=== PATIENT | female | born 1950 | race Caucasian/White ===

== ENCOUNTER → 2017-11-29 13:30 | Outpatient (CLI) | payer MEDICARE, OTHER, SELFPAY ==
--- NOTE | 2017-11-29 | DI.RAD.S_ITS ---
PROCEDURE: FL UPPER GI W AIR INDICATIONS: REFLUX DIFFICULTY SWALLOWING COMPARISON: [facility], , UPPER GI AIR CONTRAST WITH KUB, 01/19/2016, 9:27. FINDINGS: KUB: Preprocedural oil and gas superintendent film demonstrates a normal bowel gas pattern. No suspicious abdominal calcifications. Visualized solid organ contours appear normal. Bony structures appear unremarkable. Esophagus: Esophageal mucosa is normal on air-contrast views, and there is interval appearance of a small apparent traction diverticulum at the junction of the upper and middle thirds of the esophagus, previously also identified 01/19/16. On single-contrast views, there is normal esophageal peristalsis. No strictures, extrinsic mass effects, or diverticula. There is a small hiatal hernia with minimal spontaneous and elicited gastroesophageal reflux. Stomach: The stomach is normally distensible, with normal rugal fold thickness. No mucosal masses or ulcers. Pylorus and duodenal bulb appear normal in morphology. Duodenal folds are normal in thickness as well. IMPRESSION: Small sliding hiatal hernia is present with episodic mild gastroesophageal reflux associated. At times there were visualized tertiary contractions within the distal two thirds of the esophagus. A stable appearing small traction diverticulum is present at the junction of the upper and middle thirds of the esophagus, without appreciable ion exchange operator time from January 2016. No mass or stricture is found. The stomach and visualized duodenum appear normal. Dictated by: Neeraj Tucker M.D. on 11/29/2017 at 15:05 Approved by: Neeraj Tucker M.D. on 11/29/2017 at 15:07
== END ==
PROVIDERS: PCP Family Medicine; Visit Provider Family Medicine
DX: K21.9 Gastro-esophageal reflux disease without esophagitis (principal); R13.10 Dysphagia, unspecified; K44.9 Diaphragmatic hernia without obstruction or gangrene; K22.5 Diverticulum of esophagus, acquired
CPT/HCPCS: 74247

== ENCOUNTER → 2017-12-29 13:50 | Outpatient (CLI) | payer MEDICARE, OTHER, SELFPAY ==
--- NOTE | 2017-12-29 | DI.CT.S_ITS ---
PROCEDURE: CT ABDOMEN PELVIS WO/W CON INDICATIONS: KIDNEY STONES - LEFT SIDE TECHNIQUE: Optional 5 mm thick noncontrast images acquired from the diaphragm to the symphysis pubis. After the administration of intravenous contrast, 5 mm thick images acquired from the diaphragm to the symphysis pubis after a 10-minute delay. 2 mm thick coronal and sagittal reformats were then performed of the kidneys and ureters. For radiation dose reduction, the following was used: automated exposure control, adjustment of mA and/or kV according to patient size. COMPARISON: None. FINDINGS: Image quality: Excellent. Lung bases: Lung bases are clear. Heart size is normal. Bilateral breast implants showing no evidence of implant rupture. Urinary system: Both kidneys are normal in size, without hydronephrosis or nephrolithiasis on pre-contrast images. There are several left-sided peripelvic cysts, and no sign of associated urinary tract obstruction. No perinephric fat stranding. There is normal bilateral renal enhancement. Renal calyces appear normal in morphology when filled with contrast. Opacified portions of both ureters demonstrate normal caliber. Bladder wall thickness is normal. No calcified bladder stones. Other solid organs: Liver is normal in size and enhancement. The liver contains several scattered small simple hepatic cysts and no biliary distention is seen. Gallbladder appears normal. Biliary system is non dilated. Pancreas enhances normally. Spleen is normal in size and enhancement. No adrenal nodules. Peritoneum and bowel: Bowel loops demonstrate normal wall thickness and caliber. No free fluid or air. Nodes and vessels: No retroperitoneal or mesenteric adenopathy by size criteria. Aorta and inferior vena cava are normal in size. Abdominal wall: No ventral hernias. Pelvis: No pathologic free pelvic fluid. No inguinal hernias or adenopathy. Bones: No suspicious bony lesions. No vertebral body compression fractures. IMPRESSION: No acute disease is found. Source of current left-sided flank pain is not identified. There is no hydronephrosis or nephrolithiasis, but scattered left-sided peripelvic cysts are incidentally noted. No right-sided peripelvic cysts are seen. Incidental mode is made of several scattered small hepatic cysts, requiring no followup. No biliary distention is present. Dictated by: Neeraj Tucker M.D. on 12/29/2017 at 16:23 Approved by: Neeraj Tucker M.D. on 12/29/2017 at 16:26
== END ==
PROVIDERS: PCP Family Medicine; Visit Provider Family Medicine
DX: N20.0 Calculus of kidney (principal); K76.89 Other specified diseases of liver; R10.9 Unspecified abdominal pain; N94.89 Other specified conditions associated with female genital organs and menstrual cycle
CPT/HCPCS: 74178; Q9967

== ENCOUNTER → 2018-01-20 12:34 | Outpatient (CLI) | payer MEDICARE, OTHER, SELFPAY ==
--- NOTE | 2018-01-20 | DI.RAD.S_ITS ---
PROCEDURE: XR CHEST 2V INDICATIONS: GASTROESOPHAGEAL REFLUX DISEASE WITH ESOPHAGITIS TECHNIQUE: 2 views of the chest were acquired. COMPARISON: None. FINDINGS: Surgical changes and devices: None. Lungs and pleura: No pleural effusions or pneumothorax. Lungs are clear. Mediastinum: Mediastinal contours are normal. Heart size is mildly prominent. Bones and chest wall: No suspicious bony abnormalities. Soft tissues appear unremarkable. IMPRESSION: No acute pulmonary process. Dictated by: Stephanie Trevizo M.D. on 01/20/2018 at 14:12 Approved by: Stephanie Trevizo M.D. on 01/20/2018 at 14:13
== END ==
PROVIDERS: PCP Family Medicine; Visit Provider Internal Medicine Cardiovascular Disease
DX: K21.0 Gastro-esophageal reflux disease with esophagitis (principal); I71.4 Abdominal aortic aneurysm, without rupture; R07.89 Other chest pain; I44.4 Left anterior fascicular block
CPT/HCPCS: 71046

== ENCOUNTER → 2018-01-24 13:09 | Outpatient (CLI) | payer MEDICARE, OTHER, SELFPAY ==
[2018-01-24 13:59] LABS: Add Manual Diff / Slide Review NO; Basophils Percent Auto 0.8 % (0-2); Eosinophils Percent Auto 1.1 % (2-4); Hematocrit 43.6 % (36-46); Hemoglobin 14.7 g/dL (12.0-16.0); Lymphocytes Percent Auto 29.6 % (25-40); Mean Corpuscular HGB Conc 33.6 % (30-36); Mean Corpuscular Hemoglobin 33.1 PG (26-34); Mean Corpuscular Volume 98.3 fL (80-100); Monocytes Percent Auto 7.5 % (3-14); Neutrophils Absolute Auto 4400 /uL (3000-5900); Platelet Count 214 X10^3/uL (150-400); Red Blood Cell Count 4.44 X10^6/uL (4.0-5.2); Red Cell Distribution Width 13.2 % (11.6-14.8); White Blood Cell Count 7.3 X10^3/uL (4.5-11.0)
[2018-01-24 14:39] LABS: Alanine Aminotransferase 32 IU/L (9-52); Albumin 4.6 g/dL (3.5-5.0); Albumin Globulin Ratio 1.4 (1.0-2.8); Alkaline Phosphatase 57 U/L (38-126); Aspartate Aminotransferase 34 IU/L (14-36); BUN Creatinine Ratio 15.7 (6-22); Bilirubin Total 0.5 mg/dL (0.2-1.3); Blood Urea Nitrogen 11 mg/dL (7-17); Calcium 10.1 mg/dL (8.4-10.2); Carbon Dioxide 27 mmol/L (22-32); Chloride 104 mmol/L (98-107); Estimated Glomerular Filt Rate > 60.0 mL/min (>60); Globulin 3.3 g/dL (1.7-4.1); Glucose 85 mg/dL (80-110); HEMOLYSIS < 15 (0-50); Potassium 4.3 mmol/L (3.4-5.1); Sodium 144 mmol/L (137-145); Total Protein 7.9 g/dL (6.3-8.2)
[2018-01-24 15:10] LABS: Thyroid Stimulating Hormone 0.08 uIU/mL (0.47-4.68)
== END ==
PROVIDERS: Family Provider Family Medicine; PCP Family Medicine; Visit Provider Internal Medicine Cardiovascular Disease
DX: K21.0 Gastro-esophageal reflux disease with esophagitis (principal); I71.4 Abdominal aortic aneurysm, without rupture; R07.89 Other chest pain; I44.4 Left anterior fascicular block
CPT/HCPCS: 36415; 80053; 84443; 85025

== ENCOUNTER → 2018-02-16 15:52 | Outpatient (CLI) | payer MEDICARE, OTHER, SELFPAY ==
[2018-02-16 16:56] LABS: BUN Creatinine Ratio 18.6 (6-22); Blood Urea Nitrogen 13 mg/dL (7-17); Estimated Glomerular Filt Rate > 60.0 mL/min (>60)
== END ==
PROVIDERS: Family Provider Family Medicine; PCP Family Medicine; Visit Provider Internal Medicine Cardiovascular Disease
DX: Z01.812 Encounter for preprocedural laboratory examination (principal)
CPT/HCPCS: 36415; 82565; 84520

== ENCOUNTER → 2018-02-23 08:02 | Outpatient (CLI) | payer MEDICARE, OTHER, SELFPAY ==
--- NOTE | 2018-02-23 09:23 | P.PCN_ITS ---
Cardiac Stress Test Report Referral & Results Date Patient Seen: 02/23/18 Requesting provider: Ketan Park Indication: Chest pain Rest ECG: Unremarkable except for frequent PVCs including brief runs of ventricular bigeminy Procedure Note: Today following both written and verbal informed consent the patient was exercised according to a standard Daniel protocol patient went for a total of 7 min 38 sec achieving a maximum heart rate of 129 maximum systolic blood pressure of 190 to. This is approximately 10 point want METS. Exercise was terminated at this point because of inability the patient to continue because of fatigue and mild knee pain (from previous knee surgery). Patient was also given Cardiolite through a previously started Hep-Lock IV by the nuclear medicine technologist approximately 1 minute prior to the cessation of exercise. No ST-T segment changes Blunted heart rate response and somewhat hypertensive at the end Occasional to frequent PVCs including brief runs of bigeminy throughout the monitoring period. Functional aerobic impairment off scale estimate at-20% on the active scale or 120% of normal Impression: No evidence of ischemia Dysrhythmias above, suggest echocardiogram and/or ship ceiler if not already performed Perfusion imaging to be reported separately Please note: Actual ECG tracings can be found in the PACS system.
--- NOTE | 2018-02-24 14:27 | DI.NM.S_ITS ---
DATE OF SERVICE: 02/23/2018 PROCEDURE: Exercise perfusion study. INDICATION: Chest pain, abdominal pain, history of abdominal aortic aneurysm, left anterior fascicular block. RADIOPHARMACEUTICAL: 26.4 mCi technetium-99m Myoview IV was injected at stress, and 26.3 mCi technetium-99m Myoview IV was injected at rest. CARDIAC STRESS: Patient underwent exercise perfusion study under the supervision of an attending staff. Patient walked on Daniel protocol for 7 minutes 38 seconds and achieved 84% of target heart rate with hypertensive blood pressure response. Resting blood pressure 120/76. Peak blood pressure reported to be 192/108 mmHg. Baseline rhythm was sinus with left anterior fascicular block, RSR' complex in V1 to V2, and poor R wave progression. Patient also has ventricular bigeminy run during rest. During stress, there was no convincing inducible ischemic changes seen. Baseline artifact seen. Patient had episode of ventricular bigeminy during exercise as well as occasional ventricular couplets. No sustained ventricular tachycardia seen. Patient felt fatigue and knee pain. Achieved 10.1 METs of workload. RAW DATA: Raw data revealed left breast implant and breast shadow. There was increased subdiaphragmatic activity as well. GATED STUDY: Gated study revealed stress LV ejection fraction 65% without any obvious wall motion abnormalities. Resting end-diastolic volume 163 mL. TID ratio 0.86, which is within normal limits. Lung/heart ratio 0.28, which is within normal limits. MYOCARDIAL PERFUSION SCAN: Stress supine, resting supine, and stress prone images were compared to each other. Stress and resting supine images revealed large-sized moderate to severely decreased perfusion of entire anterior wall, anterior apex, which got significantly improved during prone images, suggestive of breast tissue, and in her case, breast implant, artifact. I don't see any obvious reversible ischemia. CONCLUSION: I will call this study likely a normal myocardial perfusion study with evidence of breast implant artifact which got significantly improved during prone images. Patient has baseline ventricular bigeminy which was seen during stress as well. No obvious ventricular tachycardia seen. Patient achieved 84% of target heart rate. Functional aerobic impairment is -20%. She walked on Daniel protocol for 7 minutes 38 seconds. LV function is preserved. As far as perfusion scan is concerned, it is a low-risk myocardial perfusion scan. Clinical correlation is recommended. Claudia Stallings - HIM DIRECTOR/fn/kv doc#: [id number]/job#: [id number] dd: 02/24/2018 12:38:00 dt: 02/24/2018 14:18:00 DICTATING MD/COPIES TO: Ramos Mejia MD COPIES MNE: JARON
== END ==
PROVIDERS: Family Provider Family Medicine; PCP Family Medicine; Visit Provider Internal Medicine Cardiovascular Disease
DX: R07.9 Chest pain, unspecified (principal); I49.3 Ventricular premature depolarization; K21.9 Gastro-esophageal reflux disease without esophagitis; R10.9 Unspecified abdominal pain; Z98.82 Breast implant status
CPT/HCPCS: 78452; 93016; 93017; 93018; A9502

== ENCOUNTER → 2018-02-24 09:33 | Outpatient (CLI) | payer MEDICARE, OTHER, SELFPAY ==
--- NOTE | 2018-02-24 | DI.CT.S_ITS ---
PROCEDURE: CT ANGIO CHEST ABDOMEN PELVIS INDICATIONS: ABDOMINAL ANEURYSM/CHEST PAIN TECHNIQUE: Precontrast 5 mm thick sections acquired from the lung apices to the iliac crests. After the administration of intravenous contrast, 2.5 mm thick sections again acquired from the lung apices to the iliac crests. Maximum intensity projection (MIP) oblique sagittal and coronal reformats were then acquired. For radiation dose reduction, the following was used: automated exposure control. COMPARISON: [facility], CT, CT ABDOMEN PELVIS WO/W CON, 12/29/2017, 14:06. FINDINGS: Image quality: Excellent. AORTA: There is aneurysmal dilation of the ascendingthoracic aorta measuring 44 mm. No priors are available for comparison. CHEST: Lungs and pleura: No acute airspace opacities. No pleural effusions or pneumothorax. Central and peripheral airways are patent and normal in caliber. Mediastinum: Heart size is normal. No pericardial effusion. No mediastinal or hilar adenopathy by size criteria. Central pulmonary arteries are normal in size. Esophagus is normal in caliber. No hiatal hernias. Bones and chest wall: No axillary adenopathy by size criteria. Thyroid gland is unremarkable. No suspicious bony lesions. No vertebral body compression fractures. Bilateral breast implants are present. ABDOMEN: Vasculature: Celiac trunk and mesenteric arteries are patent. Renal arteries are also patent. Solid organs: Liver is normal in size. Multiple hepatic low attenuation foci are present with a larger most consistent with cysts. Largest focus is noted anteriorly measuring 22 mm and is unchanged. Gallbladder is unremarkable. Biliary system is non dilated. Pancreas enhances normally. Spleen is normal in size and enhancement. No adrenal nodules. Both kidneys are normal in size and enhancement, without hydronephrosis. Parapelvic cysts are noted on the left with an extrarenal pelvis. There is an incidental note of a left retroaortic renal vein. Peritoneum and bowel: No free fluid or air. Bowel loops are normal in caliber and wall thickness. Mild scattered colonic diverticula are present. Nodes and vessels: No retroperitoneal or mesenteric adenopathy by size criteria. Inferior vena cava is normal in morphology. The left internal jugular appears occluded. Miscellaneous: No ventral hernias. PELVIS: Genitourinary: Bladder wall thickness is normal. Miscellaneous: No inguinal hernias or adenopathy. No ventral hernias. Bones: No suspicious bony lesions. Bone island is noted within the left sacrum, unchanged. No vertebral body compression fractures. Degenerative thoracolumbar changes are present. IMPRESSION: 1. Aneurysmal dilation of the ascending thoracic aorta as above. No priors are available for comparison. Recommend interval followup to document stability. 2. Nonopacification of the left internal jugular vein. While this could be secondary to contrast timing, occlusion cannot be excluded. Ultrasound is recommended for further evaluation. Dictated by: Stephanie Trevizo M.D. on 02/24/2018 at 11:53 Approved by: Stephanie Trevizo M.D. on 02/24/2018 at 13:39
== END ==
PROVIDERS: Family Provider Family Medicine; PCP Family Medicine; Visit Provider Internal Medicine Cardiovascular Disease
DX: I71.2 Thoracic aortic aneurysm, without rupture (principal); R07.9 Chest pain, unspecified
CPT/HCPCS: 71275; 74174; Q9967

== ENCOUNTER → 2018-07-11 13:17 | Outpatient (CLI) | payer MEDICARE, OTHER, SELFPAY ==
--- NOTE | 2018-07-11 | DI.MG.S_ITS ---
BILATERAL DIGITAL SCREENING MAMMOGRAM 3D/2D WITH CAD WITH AUGMENTATION: 07/11/2018 CLINICAL: Routine screening. Family history of breast cancer. Comparison is made to exams dated: 06/08/2017 mammogram, 01/27/2016 mammogram, and 01/17/2015 mammogram - [facility]. The tissue of both breasts is heterogeneously dense. This may lower the sensitivity of mammography. Current study was also evaluated with a Computer Aided Detection (CAD) system. Bilateral breast implants are stable and intact. There are benign calcifications in the left breast. No significant masses, calcifications, or other findings are seen in either breast. There has been no significant interval change. IMPRESSION: There is no mammographic evidence of malignancy. A 1 year screening mammogram is recommended. This exam was interpreted at Station ID: [id number]. NOTE: For mammograms, a report in lay terms will be sent to the patient. Approximately 15% of breast malignancies will not be visualized mammographically. In the management of a palpable breast mass, a negative mammogram must not discourage biopsy of a clinically suspicious lesion. Electronically Signed By: Aditya cotto/abhinav:07/11/2018 14:00:47 letter sent: Normal Exam ACR BI-RADS Category 2: Benign Finding(s) [id number]
== END ==
PROVIDERS: Family Provider Family Medicine; PCP Family Medicine; Visit Provider Family Medicine
DX: Z12.31 Encounter for screening mammogram for malignant neoplasm of breast (principal); Z80.3 Family history of malignant neoplasm of breast
CPT/HCPCS: 77063; 77067

== ENCOUNTER → 2019-09-14 13:14 | Outpatient (CLI) | payer MEDICARE, OTHER, SELFPAY ==
--- NOTE | 2019-09-14 | DI.MG.S_ITS ---
BILATERAL DIGITAL SCREENING MAMMOGRAM 3D/2D WITH CAD WITH AUGMENTATION: 09/14/2019 CLINICAL: Routine screening. Family history of breast cancer. Comparison is made to exams dated: 07/11/2018 mammogram, 06/08/2017 mammogram, 01/27/2016 mammogram, 01/17/2015 mammogram, and 11/04/2011 mammogram - [facility]. The tissue of both breasts is heterogeneously dense. This may lower the sensitivity of mammography. Current study was also evaluated with a Computer Aided Detection (CAD) system. Bilateral breast implants are stable and intact. There are benign calcifications in the left breast. No significant masses, calcifications, or other findings are seen in either breast. There has been no significant interval change. IMPRESSION: There is no mammographic evidence of malignancy. A 1 year screening mammogram is recommended. This exam was interpreted at Station ID: [id number]. NOTE: For mammograms, a report in lay terms will be sent to the patient. Approximately 15% of breast malignancies will not be visualized mammographically. In the management of a palpable breast mass, a negative mammogram must not discourage biopsy of a clinically suspicious lesion. Electronically Signed By: Blaine parnell/abhinav:09/14/2019 14:20:39 letter sent: Normal Exam ACR BI-RADS Category 2: Benign Finding(s) [id number]
== END ==
PROVIDERS: Family Provider Family Medicine; PCP Family Medicine; Referring Provider Family Medicine; Visit Provider Family Medicine
DX: Z12.31 Encounter for screening mammogram for malignant neoplasm of breast (principal); Z80.3 Family history of malignant neoplasm of breast
CPT/HCPCS: 77063; 77067

== ENCOUNTER → 2019-12-04 09:50 | Outpatient (CLI) | payer MEDICARE, OTHER, SELFPAY | PROVIDERS: Family Provider Family Medicine; PCP Family Medicine; Referring Provider Family Medicine; Visit Provider Family Medicine | DX: M81.0 Age-related osteoporosis without current pathological fracture (principal); Z78.0 Asymptomatic menopausal state; E07.9 Disorder of thyroid, unspecified | CPT/HCPCS: 77080 ==

== ENCOUNTER → 2020-01-17 10:41 | Outpatient (CLI) | payer MEDICARE, OTHER, SELFPAY ==
--- NOTE | 2020-01-17 | DI.RAD.S_ITS ---
PROCEDURE: XR KNEE LT 3V INDICATIONS: LEFT KNEE PAIN TECHNIQUE: 3 views of the knee were acquired. COMPARISON: [facility] [place], [place], KNEE SERIES LT, 10/08/2014, 14:42. FINDINGS: Bones: No fractures or dislocations. No suspicious bony lesions. Prior medial unicompartmental left knee hemiarthroplasty. No evidence of device loosening or disruption. Soft tissues: No joint effusion. No suspicious soft tissue calcifications. IMPRESSION: Stable postoperative appearance after medial unicompartmental left knee hemiarthroplasty. Source of new pain is not seen. Dictated by: Neeraj Tucker M.D. on 01/17/2020 at 11:17 Approved by: Neeraj Tucker M.D. on 01/17/2020 at 11:17
== END ==
PROVIDERS: Family Provider Family Medicine; PCP Family Medicine; Referring Provider Family Medicine; Visit Provider Family Medicine
DX: M25.562 Pain in left knee (principal); Z96.652 Presence of left artificial knee joint
CPT/HCPCS: 73562

== ENCOUNTER → 2020-03-14 12:28 | Outpatient (CLI) | payer MEDICARE, OTHER, SELFPAY ==
[2020-03-14] MEDS: COVID-19 VACC #1, MRNA(MOD) 100 MCG/0.5 ML VIAL IM (12:39)
== END ==
PROVIDERS: Family Provider Family Medicine; PCP Family Medicine; Visit Provider Internal Medicine
DX: Z23 Encounter for immunization (principal)
CPT/HCPCS: 0011A; 91301

== ENCOUNTER → 2020-04-11 14:52 | Outpatient (CLI) | payer MEDICARE, OTHER, SELFPAY ==
[2020-04-11] MEDS: COVID-19 VACC #2, MRNA(MOD) 100 MCG/0.5 ML VIAL IM (15:01)
== END ==
PROVIDERS: PCP Family Medicine; Visit Provider Internal Medicine
DX: Z23 Encounter for immunization (principal)
CPT/HCPCS: 0012A; 91301

== ENCOUNTER → 2020-04-14 14:04 | Outpatient (CLI) | payer MEDICARE, OTHER, SELFPAY ==
[2020-04-14 14:09] LABS: Bacteria Urine None Seen
[2020-04-14 15:48] LABS: Appearance Urine UA CLEAR; Bilirubin Urine UA NEGATIVE (NEGATIVE); Color Urine UA YELLOW; Glucose Urine UA NEGATIVE (Negative); Ketones Urine UA NEGATIVE (NEGATIVE); Leukocyte Esterase Urine UA TRACE (NEGATIVE); Nitrite Urine UA NEGATIVE (Negative); Occult Blood Urine UA TRACE-LYSED (Negative); Protein Urine UA NEGATIVE (Negative); Urobilinogen Urine UA 0.2 E.U./dL (0.2)
[2020-04-14 16:08] LABS: Culture Indicated Urine Specimen Cultured; RBC Urine 0-1/HPF (0-5/HPF); Squamous Epithelial Cell Urine 0-1 /HPF (0-5/HPF); WBC Urine 5-10/HPF (0-5/HPF); pH Urine UA 7.5 (4.5-8.0)
== END ==
PROVIDERS: PCP Family Medicine; Referring Provider Obstetrics & Gynecology; Visit Provider Obstetrics & Gynecology
DX: R30.0 Dysuria (principal)
CPT/HCPCS: 81001; 87086

== ENCOUNTER → 2020-05-30 15:51 | Outpatient (CLI) | payer MEDICARE, OTHER, SELFPAY ==
[2020-05-30 16:45] LABS: Add Manual Diff / Slide Review NO; Basophils Absolute Auto 0 /uL (0-100); Basophils Percent Auto 0.8 % (0-2); Eosinophils Absolute Auto 0 /uL (0-450); Eosinophils Percent Auto 0.8 % (2-4); Hematocrit 40.4 % (36-46); Hemoglobin 13.3 g/dL (12.0-16.0); Lymphocytes Absolute Auto 1800 /uL (1100-4500); Lymphocytes Percent Auto 29.1 % (25-40); Mean Corpuscular Hemoglobin 32.6 PG (26-34); Mean Corpuscular Volume 99.1 fL (80-100); Monocytes Absolute Auto 500 /uL (0-900); Monocytes Percent Auto 7.4 % (3-14); Neutrophils Absolute Auto 3900 /uL (1500-7000); Neutrophils Percent Auto 61.9 % (50-75); Platelet Count 209 X10^3/uL (150-400); Red Blood Cell Count 4.08 X10^6/uL (4.0-5.2); Red Cell Distribution Width 13.4 % (11.6-14.8); White Blood Cell Count 6.3 X10^3/uL (4.5-11.0)
[2020-05-30 17:06] LABS: Alanine Aminotransferase 20 IU/L (<35); Albumin 4.4 g/dL (3.5-5.0); Albumin Globulin Ratio 1.3 (1.0-2.8); Alkaline Phosphatase 57 U/L (38-126); Aspartate Aminotransferase 32 IU/L (14-36); BUN Creatinine Ratio 27.5 (6-22); Bilirubin Total 0.3 mg/dL (0.2-1.3); Bilirubin Unconjugated 0.3 mg/dL (0.0-1.1); Blood Urea Nitrogen 19 mg/dL (7-17); Estimated Glomerular Filt Rate > 60.0 mL/min (>60); Globulin 3.3 g/dL (1.7-4.1); HEMOLYSIS < 15 (0-50); Total Protein 7.7 g/dL (6.3-8.2)
== END ==
PROVIDERS: PCP Family Medicine; Referring Provider Podiatrist; Visit Provider Podiatrist
DX: B35.1 Tinea unguium (principal)
CPT/HCPCS: 36415; 80076; 82565; 84520; 85025

== ENCOUNTER → 2020-10-28 13:15 | Outpatient (CLI) | payer MEDICARE, OTHER, SELFPAY ==
--- NOTE | 2020-10-28 | DI.RAD.S_ITS ---
PROCEDURE: XR KNEE LT 3V INDICATIONS: LEFT KNEE PAIN TECHNIQUE: 3 views of the knee were acquired. COMPARISON: [facility] [place], GIULIANO, KNEE SERIES LT, 10/08/2014, 14:42. [facility], GIULIANO, XR KNEE LT 3V, 01/17/2020, 10:44. FINDINGS: Bones: No fractures or dislocations. No suspicious bony lesions. There is medial knee hemiarthroplasty. Bipartite patella. Moderate patellofemoral joint degeneration and mild lateral femorotibial joint degeneration. Prominent superior patellar spurring. Soft tissues: Moderate joint effusion. No suspicious soft tissue calcifications. IMPRESSION: 1. Stable postsurgical changes with medial knee arthroplasty. 2. 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 3. Moderate knee joint effusion. Dictated by: Petar Mazariegos M.D. on 10/28/2020 at 17:42 Approved by: Petar Mazariegos M.D. on 10/28/2020 at 17:45
== END ==
PROVIDERS: PCP Family Medicine; Referring Provider Family Medicine; Visit Provider Family Medicine
DX: M25.562 Pain in left knee (principal); M17.12 Unilateral primary osteoarthritis, left knee; M25.462 Effusion, left knee
CPT/HCPCS: 73562

== ENCOUNTER 2020-12-12 11:49 | Emergency (ER) | payer MEDICARE, OTHER, SELFPAY ==
[2020-12-12 11:51] VITALS: BP 171/69; PULSE 80; RESP 14; TEMP 36.2; O2SAT 97; BMI 23.3
--- NOTE | 2020-12-12 12:14 | DI.US.S_ITS ---
PROCEDURE: US PERIPH VENOUS LOW EXTREM LT INDICATIONS: LEFT CALF PAIN. POST KNEE SURGERY 1 MONTH AGO. TECHNIQUE: Real-time imaging, as well as color and pulse Doppler interrogation, were performed of the lower extremity deep veins from the inguinal ligament to the popliteal fossa. COMPARISON: [facility], , PVE UNILATERAL LEFT, 04/03/2012, 14:41. FINDINGS: The common femoral, femoral and popliteal veins are normally compressible, and free of intraluminal thrombus. Color and pulse Doppler demonstrate normal phasic intraluminal flow. There is normal augmentation response to distal compression maneuver. There is a complex soft tissue collection seen along the medial/posterior knee with mild increased surrounding vascular flow that measures 5.3 x 3.3 x 2.2 cm. IMPRESSION: Negative for deep venous thrombosis. Complex soft tissue collection seen involving the medial/posterior knee, which may be related to a hematoma in this patient with recent surgery. However, a similar appearing focus can be seen in 2012. Dictated by: Andrea Schultz M.D. on 12/12/2020 at 11:58 Approved by: Andrea Schultz M.D. on 12/12/2020 at 12:00
--- NOTE | 2020-12-12 15:01 | ED_ITS ---
HPI - Extremity Problem General Chief complaint: Extremity Problem,Nontraumatic Stated complaint: total knee surgery/DVT symptoms Time Seen by Provider: 12/12/20 15:01 Source: patient Mode of arrival: Wheelchair Limitations: no limitations History of Present Illness HPI Narrative: The patient is 1 week status post left knee surgery by Dr. Sheridan. She presents with swelling around the left knee, particularly the proximal posterior calf. There is warm. She has no fever. She has no chest pain, cough, dyspnea or hemoptysis. She takes aspirin daily. She is concerned about DVT. She has no history of clotting disorder. She is ambulatory with expected left leg discomfort. She thinks the swelling may be related to her over doing it.She puts a lot of effort into taking care of her ill . Related Data Home Medications Medication Instructions Recorded Confirmed calcium carbonate 500 mg calcium 500 mg PO DAILY 04/30/20 04/30/20 (1,250 mg) tablet (Calcium 500) cholecalciferol (vitamin D3) 125 125 mcg PO DAILY 04/30/20 04/30/20 mcg (5,000 unit) capsule esomeprazole magnesium 40 mg 40 mg PO DAILY 04/30/20 04/30/20 capsule,delayed release (Nexium) ibandronate 150 mg tablet (Boniva) 150 mg PO QMONTH 04/30/20 04/30/20 levothyroxine 100 mcg capsule 100 mcg PO DAILY 04/30/20 04/30/20 melatonin 5 mg capsule mg PO 04/30/20 04/30/20 naproxen sodium 220 mg capsule 220 mg PO BID PRN 04/30/20 04/30/20 (Aleve) terbinafine HCl 250 mg tablet 250 mg PO DAILY 04/30/20 04/30/20 turmeric (bulk) 95 % powder ea MISCELLANEOUS 04/30/20 04/30/20 (Curcumin) zolpidem 5 mg tablet (Ambien) 5 mg PO BEDTIME PRN 04/30/20 04/30/20 Previous Rx's Medication Instructions Recorded [ESTRADIOL] 0.1 mg VAGINAL 2XW #24 cap 11/22/19 clotrimazole 1 %-betamethasone See Rx Instructions TOPICAL 04/15/20 0.05 % cream-zinc ox 20 % paste .COMPLEX #135 g topical Allergies Allergy/AdvReac Type Severity Reaction Status Date / Time No Known Drug Allergies Allergy Verified 12/12/20 11:53 Review of Systems Constitutional Constitutional: Reports as per HPI, Denies chills, Denies fatigue, Denies fever(s) and Denies weakness Cardiovascular Cardiovascular: Denies chest pain, Denies rapid heart rate, Reports leg edema and Denies dyspnea Respiratory Respiratory: Denies cough, Denies hemoptysis and Denies dyspnea Musculoskeletal Musculoskeletal: Reports as per HPI and Denies numbness Neurologic Neurologic: Denies numbness and Denies weakness Endocrine Endocrine: Denies fatigue Patient History Surgical History (Updated 06/14/17 @ 06:22 by Conversion Provider) History of breast augmentation History of third molar tooth extraction History of tonsillectomy Status post arthroscopy Status post rhinoplasty Social History Smoking Status: Never smoker Smoking Status: Never smoker alcohol intake frequency: 0-2 drinks per day Substance Use Type: does not use Exam Initial Vital Signs Initial Vital Signs: Vital Signs Temperature 97.2 F L 12/12/20 11:51 Pulse Rate 80 12/12/20 11:51 Respiratory Rate 14 12/12/20 11:51 Blood Pressure 171/69 H 12/12/20 11:51 Pulse Oximetry 97 12/12/20 11:51 Const General: cooperative, healthy appearing and comfortable [facility] Head: normocephalic and atraumatic Resp Auscultation: clear to auscultation bilaterally Cardio Rate: regular rate Rhythm: regular rhythm Heart Sounds: S1 normal, S2 normal and no murmurs Skin General: no rashes or lesions noted Extrem Other: Healing surgical scar over the left knee. Edema about the knee. Slight erythema, warmth to touch. Edema extends into the left proximal calf. There is tenderness at the site with palpation. The edema does not extend to the ankle. There is no numbness or weakness in the left foot. Range of motion left knee is somewhat limited due to the recent surgery. Laxity was not tested. Course Course Course Narrative: Ultrasound report was discussed with the patient. She is advised to continue her postop care. Follow-up with her surgeon. She should return here if obviously worse. Orders Ordered: ED Orders 12/12/20 12:14 US periph venous low extrem lt Stat Vital Signs Vital signs: Vital Signs - 8 hr 12/12/20 11:51 Temperature 97.2 F L Pulse Rate 80 Respiratory Rate 14 Blood Pressure 171/69 H Pulse Oximetry 97 MDM - Extremity (Nontraumatic) Imaging Data Left leg ultrasound:: Radiologist's Impression: No evidence of DVT. Findings suggest hematoma. Discharge Plan Departure Patient Disposition: Home Clinical Impression: Hematoma of left knee region Instructions: DI for Hematoma (Bruise) Activity Restrictions/Additional Instructions: Continue to wear your pressure stockings. Continue with your postop course. Follow-up with your surgeon as scheduled. Return here for increased swelling, fever, or chest pain/dyspnea. Prescriptions: No Action [ESTRADIOL] 0.1 mg Vaginal 2XW Qty: 24 RF: 3 clotrimazole-betameth dip-zinc 1-0.05-20 % combo pack See Rx Instructions topical .COMPLEX Qty: 135 RF: 0 esomeprazole magnesium [Nexium] 40 mg capsule,delayed release(DR/EC) 40 mg PO DAILY RF: 0 ibandronate [Boniva] 150 mg tablet 150 mg PO QMONTH RF: 0 naproxen sodium [Aleve] 220 mg capsule 220 mg PO BID PRNRF: 0 calcium carbonate [Calcium 500] 500 mg calcium (1,250 mg) tablet 500 mg PO DAILY RF: 0 cholecalciferol (vitamin D3) 125 mcg (5,000 unit) capsule 125 mcg PO DAILY RF: 0 Curcumin 95 % powder miscellaneous RF: 0 levothyroxine 100 mcg capsule 100 mcg PO DAILY RF: 0 melatonin 5 mg capsule PO RF: 0 zolpidem [Ambien] 5 mg tablet 5 mg PO BEDTIME PRNRF: 0 terbinafine HCl 250 mg tablet 250 mg PO DAILY RF: 0 Referrals: Jorge Vanessa MD [Primary Care Provider] -
[2020-12-12 15:23] VITALS: BP 172/83; PULSE 77; RESP 18; O2SAT 99
== END 2020-12-12 15:25 | disposition home or self-care (01) ==
PROVIDERS: Emergency Provider Emergency Medicine; PCP Family Medicine
DX: L76.32 Postprocedural hematoma of skin and subcutaneous tissue following other procedure (principal); Z98.890 Other specified postprocedural states
CPT/HCPCS: 93971; 99281; 99283

== ENCOUNTER → 2021-03-16 09:13 | Outpatient (CLI) | payer MEDICARE, OTHER, SELFPAY ==
--- NOTE | 2021-03-16 | DI.MG.S_ITS ---
BILATERAL DIGITAL DIAGNOSTIC MAMMOGRAM 3D/2D: 03/16/2021 CLINICAL: Right breast Mastodynia. Comparison is made to exams dated: 09/14/2019 mammogram, 07/11/2018 mammogram, and 06/08/2017 mammogram - [facility]. The tissue of both breasts is heterogeneously dense. This may lower the sensitivity of mammography. Bilateral silicone implants have been removed. Benign silicone granulomas are seen in the left breast. Post-operative changes and scarring are seen in the right breast in the region of the reported pain. No significant masses, calcifications, or other findings are seen in either breast. IMPRESSION: INCOMPLETE: NEEDS ADDITIONAL IMAGING EVALUATION Post-surgical scarring but no suspicious abnormality is seen in the right breast corresponding to the focal pain. Targeted ultrasound is recommended for further evaluation and will be performed immediately following this exam. This exam was interpreted at Station ID: [id number]. NOTE: For mammograms, a report in lay terms will be sent to the patient. Approximately 15% of breast malignancies will not be visualized mammographically. In the management of a palpable breast mass, a negative mammogram must not discourage biopsy of a clinically suspicious lesion. Electronically Signed By: Anibal coleman/abhinav:03/16/2021 10:12:05 ACR BI-RADS Category 0: Incomplete 3340F
--- NOTE | 2021-03-16 | DI.US.S_ITS ---
LIMITED ULTRASOUND OF RIGHT BREAST: 03/16/2021 CLINICAL: Focal right breast pain. Comparison is made to exams dated: 03/16/2021 mammogram, 09/14/2019 mammogram, 07/11/2018 mammogram, and 06/08/2017 mammogram - [facility]. Color flow ultrasound of the right breast 6-7 o'clock region was performed. Gastelum scale images of the real-time examination were reviewed. No significant abnormalities were seen sonographically in the right breast. IMPRESSION: NEGATIVE There is no sonographic evidence of malignancy. There is no abnormality seen in the right breast to correspond with the pain, however, clinical followup is recommended. A 1 year screening mammogram is recommended. This exam was interpreted at Station ID: [id number]. Electronically Signed By: Anibal coleman/abhinav:03/16/2021 10:13:45 letter sent: Clinical Evaluation Ultrasound BI-RADS: 1 Negative
== END ==
PROVIDERS: PCP Family Medicine; Referring Provider Family Medicine; Visit Provider Family Medicine
DX: N64.4 Mastodynia; R92.2 Inconclusive mammogram
CPT/HCPCS: 76642; 77066; G0279

== ENCOUNTER 2021-08-26 07:23 | Day surgery (SDC) | payer MEDICARE, OTHER, SELFPAY ==
--- NOTE | 2021-08-26 | PATH_ITS ---
[facility] Accession Number: [id number] No. of containers..01 Tissue . 01 Material submitted: . gastrointestinal site - GASTRIC BIOPSY . 01 Diagnosis: A. Stomach, Biopsy: Body-type mucosa with mild chronic gastritis. Duodenal mucosa with no significant diagnostic abnormality, including no intraepithelial lymphocytosis or villous blunting. Negative for Helicobacter organisms by immunohistochemistry. Negative for intestinal metaplasia in the gastric mucosa. Negative for dysplasia and malignancy. [facility] 08/28/2021 1158 Local . 01 Electronically signed: . Merlyn Kinney MD, Pathologist NPI- [id number] . 01 Gross description: . GASTRIC BIOPSY: Received in formalin are 2 fragment(s) of cole, soft tissue measuring 0.2 x 0.2 x 0.2 cm to 0.3 x 0.3 x 0.3 cm submitted entirely in 1 cassette(s) /JUMA 08/27/2021 0207 Local . 01 Microscopic: . A. An immunohistochemical stain was performed to evaluate for Helicobacter organisms and is negative. The control stain showed appropriate reactivity. . 01 Pathologist provided ICD-10: Z12.11, R10.9 . 01 CPT . 973567, V81737 Specimen Comment: A courtesy copy of this report has been sent to [phone] Performed at: 01 [facility] [address] [place] [address], [place], [place] [id number] MD Blaine Hernandez MD Phone: [phone]
[2021-08-26 07:47] VITALS: BP 122/60; PULSE 72; RESP 16; TEMP 36.4; O2SAT 98; BMI 23.3
[2021-08-26 07:52] LABS: COVID19 -Nasal RAPID Negative (Negative)
[2021-08-26] MEDS: SODIUM CHLORIDE 0.9% 1,000 ML 84 ML IV (08:06)
--- NOTE | 2021-08-26 08:24 | PM.HP.1 ---
History of Present Illness History of Present Illness Date Patient Seen: 08/26/21 Chief complaint: SDC Narrative: History of colon polyps need for follow-up colonoscopy. In addition history of dysphagia with midesophageal diverticulum and increased amounts of substernal or epigastric pain. Rule out esophagitis/gastritis Patient History Surgical History (Updated 06/14/17 @ 06:22 by Conversion Provider) History of breast augmentation History of third molar tooth extraction History of tonsillectomy Status post arthroscopy Status post rhinoplasty Family & Social History Social History: household members spouse Tobacco & Substance use: Smoking Status Never smoker alcohol intake frequency 0-2 drinks per day Substance Use Type does not use Meds Home Medications and Allergies Home Medications Medication Instructions Recorded Confirmed Type clotrimazole 1 %-betamethasone See Rx Instructions topical 04/15/20 04/30/20 Rx 0.05 % cream-zinc ox 20 % paste .COMPLEX #135 grams topical calcium carbonate 500 mg calcium 500 mg PO DAILY 04/30/20 04/30/20 History (1,250 mg) tablet (Calcium 500) cholecalciferol (vitamin D3) 125 125 mcg PO DAILY 04/30/20 04/30/20 History mcg (5,000 unit) capsule esomeprazole magnesium 40 mg 40 mg PO DAILY 04/30/20 08/26/21 History capsule,delayed release (Nexium) ibandronate 150 mg tablet (Boniva) 150 mg PO QMONTH 04/30/20 04/30/20 History levothyroxine 100 mcg capsule 100 mcg PO DAILY 04/30/20 04/30/20 History melatonin 5 mg capsule mg PO 04/30/20 04/30/20 History naproxen sodium 220 mg capsule 220 mg PO BID PRN 04/30/20 04/30/20 History (Aleve) turmeric (bulk) 95 % powder ea miscellaneous 04/30/20 04/30/20 History (Curcumin) zolpidem 5 mg tablet (Ambien) 5 mg PO BEDTIME PRN 04/30/20 04/30/20 History PS-ESTRADIOL 0.1mg Capsule [place] 0.1 mg vaginal 3XW #36 caps 04/21/21 Rx Oil Clear Allergies Allergy/AdvReac Type Severity Reaction Status Date / Time No Known Drug Allergies Allergy Verified 08/26/21 07:39 Exam Vital Signs (past 8 hours): - 08/26/21 07:47 Temperature 97.6 F Pulse Rate 72 Respiratory Rate 16 Blood Pressure 122/60 Pulse Oximetry 98 Oxygen Delivery Method Room Air Oxygen Delivery Method Room Air Narrative Exam Narrative: Oropharynx free of lesions Chest clear to auscultation percussion Cardiac exam reveals no S3 or murmur Objective Labs Labs: Laboratory Results - last 24 hr 08/26/21 07:37 SARS-CoV-2 (PCR) Negative Assessment & Plan Assessment & Plan narrative: One. History of colon polyps need for follow-up colonoscopy. Risks, benefits, alternatives have been explained 2. History of dysphagia with increasing lower substernal and epigastric pain rule out increasing esophagitis and worsening of diverticulum. Risks, benefits, alternatives have been explained. Further recommendations to follow results of the study. She is currently on 40 mg of omeprazole which not only has been ineffective in completely clearing symptoms but also ineffective with her cough which may be related to reflux. Time Spent With Patient Critical Care time: I spent a total of [] minutes of critical care time on this patient's care today; this time is exclusive of procedural time.
--- NOTE | 2021-08-26 08:26 | PM.OP.EC ---
Operative Date/Time/Diagnoses Date of procedure: 08/26/21 Pre-op diagnosis: See indication and findings Procedure & Clinicians Study performed: EGD and colonoscopy Indications: Dysphagia and increasing substernal and epigastric pain with known history of esophageal diverticulum. Also need for colorectal cancer screening at over 5 year interval Procedure Notes Procedure in detail: After informed consent was obtained the patient was placed in left lateral decubitus position. The video upper scope was placed into the oropharynx and with the patient's help swelled into the esophagus. The esophagus stomach and duodenum were carefully examined. On withdrawal, retroflexed view the GE junction was performed. The scope was removed. The patient tolerated procedure well. The patient was then turned to the colonoscope substituted. This was introduced in the rectum slowly advanced cecum. On slow withdrawal mucosa was carefully examined. The scope was removed. The patient tolerated procedure well. Blood loss none Complications none Sedation mac Findings EGD 1. Zenker's diverticulum at 17 cm from the incisors 2. Disordered motility throughout the esophagus but no evidence of a midesophageal diverticulum. Several passes made. 3. Moderately open lower esophageal sphincter without any evidence of esophagitis. Photographs taken 4. Streaky gastric erythema in the pre-pyloric and antral regions. Biopsies taken to rule out Helicobacter 5. Normal duodenal bulb and sweep Colonoscopy 1. Mild sigmoid diverticulosis 2. Otherwise negative colonoscopy to cecum Patient should make a follow-up appointment in the office and in accordance to discuss whether further workup of her cough is warranted with a [employer] we will also discuss consideration of Zenker's diverticulum me if she is quite bothered by the dysphagia. Preoperatively however might want to consider esophageal manometry as she clearly had disordered motility on EGD.
[2021-08-26 09:11] VITALS: BP 121/61; PULSE 62; RESP 18; TEMP 36.3; O2SAT 97
[2021-08-26 09:15] VITALS: BP 133/62; PULSE 57; RESP 18; O2SAT 98
[2021-08-26 09:20] VITALS: BP 127/56; PULSE 54; RESP 15; O2SAT 99
[2021-08-26 09:34] VITALS: BP 122/77; PULSE 58; RESP 18; O2SAT 99
--- NOTE | 2021-08-26 09:43 | SUR.PHASEII ---
discharge instructions reviewed with patient with time allowed for questions.
== END 2021-08-26 09:40 | disposition home or self-care (01) ==
PROVIDERS: PCP Family Medicine; Referring Provider Internal Medicine Gastroenterology; Visit Provider Internal Medicine Gastroenterology
PROC: 0DJD8ZZ Inspection of Lower Intestinal Tract, Via Natural or Artificial Opening Endoscopic (ICD-10-PCS; CPT 45378; principal; 2021-08-26 08:30)
PROC: 0DJ08ZZ Inspection of Upper Intestinal Tract, Via Natural or Artificial Opening Endoscopic (ICD-10-PCS; CPT 43235; 2021-08-26 08:30)
DX: Z12.11 Encounter for screening for malignant neoplasm of colon (principal); K57.30 Diverticulosis of large intestine without perforation or abscess without bleeding; K29.50 Unspecified chronic gastritis without bleeding; K22.5 Diverticulum of esophagus, acquired; K22.4 Dyskinesia of esophagus; R13.10 Dysphagia, unspecified; R10.13 Epigastric pain; R07.2 Precordial pain; E03.9 Hypothyroidism, unspecified; I10 Essential (primary) hypertension; I49.3 Ventricular premature depolarization; Z20.822 Contact with and (suspected) exposure to COVID-19
CPT/HCPCS: 43239; G0121; 87635; C9803; J2704; J3010

== ENCOUNTER 2021-10-22 09:41 | Emergency (ER) | payer MEDICARE, OTHER, SELFPAY ==
[2021-10-22 09:50] VITALS: BP 119/91; PULSE 115; O2SAT 100
[2021-10-22 09:55] VITALS: BP 119/91; PULSE 134; RESP 16; TEMP 36.6; O2SAT 100; BMI 22.8
[2021-10-22 10:00] VITALS: BP 149/86; PULSE 72; O2SAT 100
--- NOTE | 2021-10-22 10:00 | DI.RAD.S_ITS ---
PROCEDURE: XR CHEST 1V INDICATIONS: chest pain TECHNIQUE: One view of the chest was acquired. COMPARISON: [facility], CR, XR CHEST 2V, 01/20/2018, 12:41. FINDINGS: Surgical changes and devices: None. Lungs and pleura: Lungs are clear. No pleural effusions or pneumothorax. Mediastinum: Mediastinal contours appear normal. Heart size is normal. Bones and chest wall: No suspicious bony lesions. Overlying soft tissues appear unremarkable. IMPRESSION: No acute cardiopulmonary pathology. Dictated by: Ronal Luong M.D. on 10/22/2021 at 10:29 Approved by: Ronal Luong M.D. on 10/22/2021 at 10:30
[2021-10-22 10:14] LABS: Prothrombin Time 10.9 SECONDS (10.1-12.7)
[2021-10-22 10:16] LABS: PTT Partial Thromboplastin Tim 29 SECONDS (26-36)
[2021-10-22 10:19] LABS: Add Manual Diff / Slide Review NO; Basophils Absolute Auto 100 /uL (0-100); Basophils Percent Auto 0.9 % (0-2); Eosinophils Absolute Auto 100 /uL (0-450); Eosinophils Percent Auto 1.1 % (2-4); Hematocrit 43.6 % (36-46); Hemoglobin 14.7 g/dL (12.0-16.0); Lymphocytes Absolute Auto 2000 /uL (1100-4500); Lymphocytes Percent Auto 32.1 % (25-40); Mean Corpuscular HGB Conc 33.7 % (30-36); Mean Corpuscular Hemoglobin 33.9 PG (26-34); Mean Corpuscular Volume 100.3 fL (80-100); Monocytes Absolute Auto 700 /uL (0-900); Monocytes Percent Auto 11.6 % (3-14); Neutrophils Absolute Auto 3400 /uL (1500-7000); Neutrophils Percent Auto 54.3 % (50-75); Platelet Count 236 X10^3/uL (150-400); Red Blood Cell Count 4.34 X10^6/uL (4.0-5.2); Red Cell Distribution Width 12.8 % (11.6-14.8); White Blood Cell Count 6.2 X10^3/uL (4.5-11.0)
[2021-10-22 10:30] VITALS: BP 124/77; PULSE 69; RESP 28; O2SAT 97
[2021-10-22 10:38] LABS: Alanine Aminotransferase 24 IU/L (<35); Albumin 4.4 g/dL (3.5-5.0); Albumin Globulin Ratio 1.2 (1.0-2.8); Alkaline Phosphatase 57 U/L (38-126); Aspartate Aminotransferase 30 IU/L (14-36); Bilirubin Total 0.7 mg/dL (0.2-1.3); Blood Urea Nitrogen 12 mg/dL (7-17); Calcium 9.5 mg/dL (8.4-10.2); Carbon Dioxide 21 mmol/L (22-32); Chloride 103 mmol/L (98-107); Creatine Kinase 116 U/L (30-135); Estimated Glomerular Filt Rate > 60 mL/min (>60); Globulin 3.7 g/dL (1.7-4.1); Glucose 112 mg/dL (80-110); HEMOLYSIS 16 (0-50); Lipase 86 U/L (23-300); Magnesium 1.8 mg/dL (1.6-2.3); Potassium 4.2 mmol/L (3.4-5.1); Sodium 136 mmol/L (137-145); Total Protein 8.1 g/dL (6.3-8.2)
[2021-10-22 10:50] LABS: Troponin I < 0.012 ng/mL (0.01-0.034)
[2021-10-22 10:53] LABS: CKMB % Relative Index 1.2 % (1.5-5.0); Creatine Kinase MB 1.34 ng/mL (<2.37)
[2021-10-22 11:00] VITALS: BP 122/64; PULSE 65; RESP 17; O2SAT 96
--- NOTE | 2021-10-22 11:19 | ED_ITS ---
HPI - Arrhythmia/Palpitations General Chief Complaint: Arrhythmia/Palpitations Stated Complaint: shortness of breath,fainting,shaky Time Seen by Provider: 10/22/21 11:11 Source: patient Mode of arrival: Wheelchair History of Present Illness HPI narrative: Patient brought in by . Complains of dizziness weakness shortness of breath palpitations since 5:00 a.m. this morning. Patient sees [facility] Cardiology Dr. Park for past history of arrhythmias PVCs PACs however no atrial flutter or atrial fibrillation history. While being placed on monitor here nurse noted and does show on monitor patient was in AFib with rate of 150. However patient immediately spontaneously converted and is now in sinus rhythm. Patient states that the past couple of months had 4 or 5 episodes lasting about 10 minutes of the same that resolved on its own. No syncope. No diaphoresis no chest pain. Sees Dr. Vanessa for primary care. Is on levothyroxine for hypothyroidism. Is on blood pressure medication but no beta blockers. No recent illness otherwise Related Data Home Medications Medication Instructions Recorded Confirmed calcium carbonate 500 mg calcium 500 mg PO DAILY 04/30/20 04/30/20 (1,250 mg) tablet (Calcium 500) cholecalciferol (vitamin D3) 125 125 mcg PO DAILY 04/30/20 04/30/20 mcg (5,000 unit) capsule esomeprazole magnesium 40 mg 40 mg PO DAILY 04/30/20 08/26/21 capsule,delayed release (Nexium) ibandronate 150 mg tablet (Boniva) 150 mg PO QMONTH 04/30/20 04/30/20 levothyroxine 100 mcg capsule 100 mcg PO DAILY 04/30/20 04/30/20 melatonin 5 mg capsule mg PO 04/30/20 04/30/20 naproxen sodium 220 mg capsule 220 mg PO BID PRN 04/30/20 04/30/20 (Aleve) turmeric (bulk) 95 % powder ea miscellaneous 04/30/20 04/30/20 (Curcumin) zolpidem 5 mg tablet (Ambien) 5 mg PO BEDTIME PRN 04/30/20 04/30/20 Previous Rx's Medication Instructions Recorded clotrimazole 1 %-betamethasone See Rx Instructions topical 04/15/20 0.05 % cream-zinc ox 20 % paste .COMPLEX #135 grams topical PS-ESTRADIOL 0.1mg Capsule [place] 0.1 mg vaginal 3XW #36 caps 04/21/21 Oil Clear apixaban 5 mg tablet (Eliquis) 5 mg PO BID #60 tabs 10/22/21 metoprolol succinate 50 mg 50 mg PO DAILY #30 tabs 10/22/21 tablet,extended release 24 hr Allergies Allergy/AdvReac Type Severity Reaction Status Date / Time No Known Drug Allergies Allergy Verified 10/22/21 10:01 Review of Systems Review of Systems Narrative: GENERAL: Denies chills, fatigue, malaise, fever, sweats., positive for generalized weakness HEENT: Denies sinus pain, ear pain, sore throat RESPIRATORY: Positive for dyspnea, negative for cough CARDIOVASCULAR: Denies chest pain, positive for palpitations GASTROINTESTINAL: Denies nausea, vomiting, abdominal pain : Denies dysuria, frequency, hematuria MUSCULOSKELETAL: denies muscle or bony pain SKIN: Denies rash, skin lesions NEUROLOGIC: Negative for focal weakness, numbness, positive for generalized dizziness ROS Unobtainable: All systems reviewed & are unremarkable except as noted in HPI and below Patient History Surgical History History of breast augmentation History of third molar tooth extraction History of tonsillectomy Status post arthroscopy Status post rhinoplasty Social History household members: spouse Smoking Status: Never smoker Smoking Status: Never smoker alcohol intake frequency: 0-2 drinks per day Substance Use Type: does not use Exam Narrative Exam Narrative: GENERAL: in no distress, not toxic not dyspneic HEAD: Normocephalic. EYES: Pupils equal round No scleral icterus. ENT: Mucous membranes moist. NECK: Trachea midline. CARDIOVASCULAR: Regular rate and rhythm without murmurs RESPIRATORY: Clear to auscultation. Breath sounds equal bilaterally. No wheezes, rales, or rhonchi. GASTROINTESTINAL: Abdomen soft, non-tender EXTREMITIES: No gross deformities. BACK: No flank tenderness. NEURO: AOx4. SKIN: Warm and dry PSYCH: Not anxious, is cooperative Initial Vital Signs Initial Vital Signs: Vital Signs Pulse Rate 115 H 10/22/21 09:50 Blood Pressure 119/91 H 10/22/21 09:50 Pulse Oximetry 100 10/22/21 09:50 Course Course Course Narrative: No new issues during course of stay Orders Ordered: ED Orders 10/22/21 09:58 EKG-12 Lead Stat 10/22/21 10:00 XR chest 1V Stat Complete Blood Count AUTO DIFF Stat Comprehensive Metabolic Panel Stat Lipase Stat Magnesium Stat Partial Thromboplastin Time Stat Prothrombin Time INR Stat TSH [Thyroid Stimulating Hormone] Stat Troponin & CK Cardiac Panel Stat Discontinued Medications Apixaban (Apixaban 5 Mg Tablet) 5 mg PO NOW ONE Stop: 10/22/21 11:44 Last Admin: 10/22/21 12:12 Dose: 5 mg Documented By: MIKAL Metoprolol Succinate (Metoprolol Er 50 Mg Tablet) 50 mg PO NOW ONE Stop: 10/22/21 11:44 Last Admin: 10/22/21 12:12 Dose: 50 mg Documented By: MIKAL Reevaluation(s) Reevaluation #1: Reviewed results with patient and . No complaints at this time. Understands that she was in atrial fibrillation that we saw on monitor. However now sinus rhythm. Patient former employee here at the operating room. She sees Dr. Park [facility] for arrhythmias but no AFib or a flutter. Patient currently asymptomatic, in sinus rhythm. Understands will need follow- up with Cardiology and primary care with likely antiarrhythmic and Eliquis. She understands risks of Eliquis as well. Time: 11:22 Consultations Consultation #1: Spoke with patient's paediatric surgeon, Dr. Park, desires patient to start on Eliquis 5 mg twice a day as well as metoprolol XL 50 mg daily. He reviewed echocardiogram from last year as well. He will have patient follow-up in his office. No admission recommended Time: 11:38 Vital Signs Vital signs: Vital Signs - 8 hr 10/22/21 10:30 10/22/21 10:30 10/22/21 11:00 Pulse Rate 69 Respiratory Rate 28 H Blood Pressure 124/77 122/64 Pulse Oximetry 97 Oxygen Delivery Method 10/22/21 11:00 10/22/21 11:30 10/22/21 11:30 Pulse Rate 65 60 Respiratory Rate 17 20 Blood Pressure 111/67 Pulse Oximetry 96 98 Oxygen Delivery Method Room Air MDM - Arrhythmia/Palpitations Differential Diagnosis Differential diagnosis: Likely palpitations, sinus tachycardia, artial fibrillation, artial flutter, ventricular premature beats, supraventricular tachycardia and ventricular tachycardia Lab Data Result diagrams: 10/22/21 10:00 10/22/21 10:00 Labs: Lab Results 10/22/21 10/22/21 10/22/21 Range/Units 10:00 10:00 10:00 WBC 6.2 (4.5-11.0) X10^3/uL RBC 4.34 (4.0-5.2) X10^6/uL Hgb 14.7 (12.0-16.0) g/dL Hct 43.6 (36-46) % MCV 100.3 H (80-100) fL MCH 33.9 (26-34) PG MCHC 33.7 (30-36) % RDW 12.8 (11.6-14.8) % Plt Count 236 (150-400) X10^3/uL Neut % (Auto) 54.3 (50-75) % Lymph % (Auto) 32.1 (25-40) % [place] % (Auto) 11.6 (3-14) % Eos % (Auto) 1.1 L (2-4) % Baso % (Auto) 0.9 (0-2) % Neut # (Auto) 3400 (6037-4623) /uL Lymph # (Auto) 2000 (6906-4936) /uL [place] # (Auto) 700 (0-900) /uL Eos # (Auto) 100 (0-450) /uL Baso # (Auto) 100 (0-100) /uL PT 10.9 (10.1-12.7) SECONDS INR 1.0 (0.9-1.3) APTT 29 (26-36) SECONDS Sodium 136 L (137-145) mmol/L Potassium 4.2 (3.4-5.1) mmol/L Chloride 103 (98-107) mmol/L Carbon Dioxide 21 L (22-32) mmol/L BUN 12 (7-17) mg/dL Creatinine 0.75 (0.52-1.04) mg/dL Estimated GFR > 60 (>60) mL/min BUN/Creatinine Ratio 16.0 (6-22) Glucose 112 H (80-110) mg/dL Calcium 9.5 (8.4-10.2) mg/dL Magnesium 1.8 (1.6-2.3) mg/dL Total Bilirubin 0.7 (0.2-1.3) mg/dL AST 30 (14-36) IU/L ALT 24 (<35) IU/L Alkaline Phosphatase 57 (38-126) U/L Total Creatine Kinase 116 (30-135) U/L CK-MB (CK-2) 1.34 (<2.37) ng/mL CK-MB (CK-2) Rel Index 1.2 L (1.5-5.0) % Troponin I < 0.012 (0.01-0.034) ng/mL Total Protein 8.1 (6.3-8.2) g/dL Albumin 4.4 (3.5-5.0) g/dL Globulin 3.7 (1.7-4.1) g/dL Albumin/Globulin Ratio 1.2 (1.0-2.8) Lipase 86 (23-300) U/L TSH (0.47-4.68) uIU/mL 10/22/21 Range/Units 10:00 WBC (4.5-11.0) X10^3/uL RBC (4.0-5.2) X10^6/uL Hgb (12.0-16.0) g/dL Hct (36-46) % MCV (80-100) fL MCH (26-34) PG MCHC (30-36) % RDW (11.6-14.8) % Plt Count (150-400) X10^3/uL Neut % (Auto) (50-75) % Lymph % (Auto) (25-40) % [place] % (Auto) (3-14) % Eos % (Auto) (2-4) % Baso % (Auto) (0-2) % Neut # (Auto) (8191-6742) /uL Lymph # (Auto) (2061-4255) /uL [place] # (Auto) (0-900) /uL Eos # (Auto) (0-450) /uL Baso # (Auto) (0-100) /uL PT (10.1-12.7) SECONDS INR (0.9-1.3) APTT (26-36) SECONDS Sodium (137-145) mmol/L Potassium (3.4-5.1) mmol/L Chloride (98-107) mmol/L Carbon Dioxide (22-32) mmol/L BUN (7-17) mg/dL Creatinine (0.52-1.04) mg/dL Estimated GFR (>60) mL/min BUN/Creatinine Ratio (6-22) Glucose (80-110) mg/dL Calcium (8.4-10.2) mg/dL Magnesium (1.6-2.3) mg/dL Total Bilirubin (0.2-1.3) mg/dL AST (14-36) IU/L ALT (<35) IU/L Alkaline Phosphatase (38-126) U/L Total Creatine Kinase (30-135) U/L CK-MB (CK-2) (<2.37) ng/mL CK-MB (CK-2) Rel Index (1.5-5.0) % Troponin I (0.01-0.034) ng/mL Total Protein (6.3-8.2) g/dL Albumin (3.5-5.0) g/dL Globulin (1.7-4.1) g/dL Albumin/Globulin Ratio (1.0-2.8) Lipase (23-300) U/L TSH 0.417 L (0.47-4.68) uIU/mL Imaging Data Chest x-ray: Radiologist's Impresson: [address] [address] XRay Report Signed Patient: Claudia Stallings MR#: [id number] : 1950 Acct:[id number] Age/Sex: 71 / F Date of Service: 10/22/21 Loc: ED Accession Number: [id number] ?? Procedure: XR chest 1V Ordering Provider: Suraj Ann MD PROCEDURE:? XR CHEST 1V ? INDICATIONS:? chest pain ? TECHNIQUE:? One view of the chest was acquired.? ? COMPARISON:? [facility], CR, XR CHEST 2V, 01/20/2018, 12:41. ? FINDINGS:? ? Surgical changes and devices:? None.? ? Lungs and pleura:? Lungs are clear.? No pleural effusions or pneumothorax.? ? Mediastinum:? Mediastinal contours appear normal.? Heart size is normal.? ? Bones and chest wall:? No suspicious bony lesions.? Overlying soft tissues appear unremarkable.? ? IMPRESSION:? No acute cardiopulmonary pathology. ? ? Dictated by: Ronal Luong M.D. on 10/22/2021 at 10:29 ? ? Approved by: Ronal Luong M.D. on 10/22/2021 at 10:30 ? ECG Data Interpretation: Normal sinus rhythm rate [address] elevation or depression MDM Narrative Medical decision making narrative: Appropriate for discharge home. Laboratory studies and imaging and EKG reassuring. I did review with patient's paediatric surgeon and patient and family and agree for discharge home and follow up in the office. Metoprolol succinate 50 mg once a day and Eliquis 5 mg twice a day provided prescription. Return pr ecautions reviewed with them. Patient in sinus rhythm at time of discharge. No symptoms or complaints. They desire discharge home. Metoprolol and Eliquis started here. Discharge Plan Departure Patient Disposition: Home Clinical Impression: New onset atrial fibrillation Instructions: DI for Atrial Fibrillation Activity Restrictions/Additional Instructions: Call your cardiology office today for office re-evaluation within a week. Dr. Park is expecting you. Prescription for metoprolol succinate 50 mg once daily as well as Eliquis 5 mg twice a day has been provided for you. Return worse or for any questions or concerns Prescriptions: New Eliquis 5 mg tablet 5 mg PO BID Qty: 60 0RF metoprolol succinate 50 mg tablet extended release 24 hr 50 mg PO DAILY Qty: 30 0RF No Action clotrimazole-betameth dip-zinc 1-0.05-20 % combo pack See Rx Instructions topical .COMPLEX Qty: 135 0RF Rx Instructions: apply CLOTRIMAZOLE/BETAMETHASONE CREAM twice daily: PS-ESTRADIOL 0.1mg Capsule [place] Oil Clear 0.1 mg Vaginal 3XW Qty: 36 3RF esomeprazole magnesium [Nexium] 40 mg capsule,delayed release(DR/EC) 40 mg PO DAILY ibandronate [Boniva] 150 mg tablet 150 mg PO QMONTH naproxen sodium [Aleve] 220 mg capsule 220 mg PO BID PRN calcium carbonate [Calcium 500] 500 mg calcium (1,250 mg) tablet 500 mg PO DAILY cholecalciferol (vitamin D3) 125 mcg (5,000 unit) capsule 125 mcg PO DAILY Curcumin 95 % powder miscellaneous levothyroxine 100 mcg capsule 100 mcg PO DAILY melatonin 5 mg capsule PO zolpidem [Ambien] 5 mg tablet 5 mg PO BEDTIME PRN Referrals: Jorge Vanessa MD [Primary Care Provider] - Visit Report Forms: Patient Portal/API
[2021-10-22 11:30] VITALS: BP 111/67; PULSE 60; RESP 20; O2SAT 98
[2021-10-22] MEDS: METOPROLOL ER 50 MG TABLET PO (12:12)
[2021-10-22] MEDS: APIXABAN 5 MG TABLET PO (12:12)
[2021-10-22 12:14] LABS: Thyroid Stimulating Hormone 0.417 uIU/mL (0.47-4.68)
== END 2021-10-22 12:15 | disposition home or self-care (01) ==
PROVIDERS: Emergency Provider Emergency Medicine; PCP Family Medicine
DX: I48.91 Unspecified atrial fibrillation (principal); R07.9 Chest pain, unspecified
CPT/HCPCS: 36415; 71045; 80053; 82550; 82553; 83690; 83735; 84443; 84484; 85025; 85610; 85730; 93005; 93010; 99284

== ENCOUNTER → 2021-12-21 11:50 | Outpatient (CLI) | payer MEDICARE, OTHER, SELFPAY | PROVIDERS: PCP Family Medicine; Referring Provider Family Medicine; Visit Provider Family Medicine | DX: M81.0 Age-related osteoporosis without current pathological fracture (principal); Z78.0 Asymptomatic menopausal state; Z79.83 Long term (current) use of bisphosphonates | CPT/HCPCS: 77080 ==

== ENCOUNTER → 2022-03-29 12:38 | Outpatient (CLI) | payer MEDICARE, OTHER, SELFPAY ==
--- NOTE | 2022-03-29 | DI.MG.S_ITS ---
BILATERAL DIGITAL SCREENING MAMMOGRAM 3D/2D WITH CAD: 03/29/2022 CLINICAL: Routine screening. Family history of breast cancer. Comparison is made to exams dated: 03/16/2021 mammogram, 09/14/2019 mammogram, 07/11/2018 mammogram, and 06/08/2017 mammogram - [facility]. Both breasts are heterogeneously dense, which may obscure small masses (category c / 51-75% glandular tissue). Current study was also evaluated with a Computer Aided Detection (CAD) system. No significant masses, calcifications, or other findings are seen in either breast. Left breast residual silicone. Implants have been removed. There has been no significant interval change. IMPRESSION: BENIGN There is no mammographic evidence of malignancy. A 1 year screening mammogram is recommended. Based on the Tyrer Cuzick model (a risk assessment model) the patient's lifetime risk is 13.9% and her 10 year risk is 8.9%. According to the ACR, ACS, and NCCN guidelines, an annual breast MRI exam along with mammogram is recommended if the patient's lifetime risk is 20% or greater. This exam was interpreted at Station ID: [id number]. NOTE: For mammograms, a report in lay terms will be sent to the patient. Approximately 15% of breast malignancies will not be visualized mammographically. In the management of a palpable breast mass, a negative mammogram must not discourage biopsy of a clinically suspicious lesion. Electronically Signed By: Channing Quintanilla M.D. [facility] [place]/:03/29/2022 13:29:48 letter sent: Normal Exam ACR BI-RADS Category 2: Benign Finding(s) 3342F
== END ==
PROVIDERS: PCP Family Medicine; Referring Provider Family Medicine; Visit Provider Family Medicine
DX: Z12.31 Encounter for screening mammogram for malignant neoplasm of breast (principal); Z80.3 Family history of malignant neoplasm of breast
CPT/HCPCS: 77063; 77067

== ENCOUNTER → 2022-04-27 11:33 | Outpatient (CLI) | payer MEDICARE, OTHER, SELFPAY ==
--- NOTE | 2022-04-27 | DI.RAD.S_ITS ---
PROCEDURE: XR RIBS RT MIN 3V W CXR 1V INDICATIONS: right rib pain TECHNIQUE: 2 views of the right ribs were acquired, along with a single view chest. COMPARISON: None. FINDINGS: Surgical changes and devices: None. Bones and chest wall: No fractures or dislocations. No suspicious bony lesions. Overlying soft tissues appear unremarkable. Lungs and pleura: No pleural effusions or pneumothorax. Lungs appear clear. Mediastinum: Mediastinal contours appear normal. Heart size is normal. IMPRESSION: No acute fracture. No osseous lesion. If symptoms and/or clinical suspicion for pathology persist, further assessment with repeat, or advanced imaging (e.g., CT, MRI, or bone scan) may be helpful for further assessment. Dictated by: Sarah Cantrell M.D. on 04/27/2022 at 12:41 Transcribed by: ISATU on 04/27/2022 at 12:43 Approved by: Sarah Cantrell M.D. on 04/27/2022 at 16:44
== END ==
PROVIDERS: PCP Family Medicine; Referring Provider Family Medicine; Visit Provider Family Medicine
DX: R07.81 Pleurodynia (principal)
CPT/HCPCS: 71101

== ENCOUNTER 2022-06-25 04:20 | Emergency (ER) | payer MEDICARE, OTHER, SELFPAY ==
[2022-06-25] VITALS (10 sets, daily range): BP systolic 138–196; BP diastolic 63–80; PULSE 47–64; RESP 18–20; O2SAT 95–99; BMI 22.8
--- NOTE | 2022-06-25 04:28 | DI.RAD.S_ITS ---
PROCEDURE: XR CHEST 1V INDICATIONS: chest pain TECHNIQUE: One view of the chest was acquired. COMPARISON: [facility], CR, XR CHEST 2V, 01/20/2018, 12:41. [facility], CR, XR CHEST 1V, 10/22/2021, 10:07. FINDINGS: Surgical changes and devices: None. Lungs and pleura: Lungs are clear. No pleural effusions or pneumothorax. Mediastinum: Mediastinal contours appear within normal limits. Heart size is mildly enlarged. Bones and chest wall: No suspicious bony lesions. Overlying soft tissues appear unremarkable. IMPRESSION: Mild cardiomegaly. No acute cardiopulmonary abnormalities. No focal consolidation. No significant discrepancy with the teacher aide radiology preliminary report. Dictated by: Aditya Schmid M.D. on 06/25/2022 at 7:21 Approved by: Aditya Schmid M.D. on 06/25/2022 at 7:23
[2022-06-25 04:43] LABS: Add Manual Diff / Slide Review NO; Basophils Absolute Auto 0 /uL (0-100); Basophils Percent Auto 0.6 % (0-2); Eosinophils Absolute Auto 100 /uL (0-450); Eosinophils Percent Auto 1.1 % (2-4); Hematocrit 40.3 % (36-46); Hemoglobin 13.8 g/dL (12.0-16.0); Lymphocytes Absolute Auto 2600 /uL (1100-4500); Mean Corpuscular HGB Conc 34.2 % (30-36); Mean Corpuscular Hemoglobin 33.9 PG (26-34); Monocytes Absolute Auto 700 /uL (0-900); Monocytes Percent Auto 8.7 % (3-14); Neutrophils Absolute Auto 4100 /uL (1500-7000); Neutrophils Percent Auto 54.6 % (50-75); Platelet Count 195 X10^3/uL (150-400); Red Blood Cell Count 4.07 X10^6/uL (4.0-5.2); Red Cell Distribution Width 13.2 % (11.6-14.8); White Blood Cell Count 7.5 X10^3/uL (4.5-11.0)
[2022-06-25] MEDS: PANTOPRAZOLE 40 MG VIAL IV (04:52)
[2022-06-25] MEDS: SODIUM CHLORIDE 0.9% 1,000 ML 150 ML IV (04:52)
[2022-06-25 04:55] LABS: Alanine Aminotransferase 33 IU/L (<35); Albumin 4.2 g/dL (3.5-5.0); Albumin Globulin Ratio 1.4 (1.0-2.8); Alkaline Phosphatase 49 U/L (38-126); Aspartate Aminotransferase 46 IU/L (14-36); BUN Creatinine Ratio 20.9 (6-22); Bilirubin Total 0.5 mg/dL (0.2-1.3); Blood Urea Nitrogen 14 mg/dL (7-17); Calcium 9.5 mg/dL (8.4-10.2); Carbon Dioxide 27 mmol/L (22-32); Chloride 101 mmol/L (98-107); Creatine Kinase 86 U/L (30-135); Estimated Glomerular Filt Rate > 60 mL/min (>60); Globulin 3.1 g/dL (1.7-4.1); Glucose 101 mg/dL (80-110); HEMOLYSIS 17 (0-50); Lipase 95 U/L (23-300); Potassium 3.6 mmol/L (3.4-5.1); Sodium 135 mmol/L (137-145); Total Protein 7.3 g/dL (6.3-8.2)
--- NOTE | 2022-06-25 04:58 | ED.CHESTPAIN ---
HPI - Chest Pain General Chief Complaint: Chest Pain Stated Complaint: chest pain Time Seen by Provider: 06/25/22 04:27 Source: patient Mode of arrival: Ambulatory Limitations: no limitations History of Present Illness HPI narrative: Patient is a 72-year-old female history of atrial fib on Eliquis presents today with some chest discomfort. She reports that she has pain with swallowing both liquids and solids. She is not vomiting not sure breath. Pain does not radiate. She reports the pain has been ongoing for about 24 hours. No palliation of chest pain. She denies any shortness of breath or palpitations. She reports that she definitely thin feel her esophagus tightening and spasming. She took Tums at without any relief. Related Data Home Medications Medication Instructions Recorded Confirmed calcium carbonate 500 mg calcium 500 mg PO DAILY 04/30/20 04/30/20 (1,250 mg) tablet (Calcium 500) cholecalciferol (vitamin D3) 125 125 mcg PO DAILY 04/30/20 04/30/20 mcg (5,000 unit) capsule esomeprazole magnesium 40 mg 40 mg PO DAILY 04/30/20 08/26/21 capsule,delayed release (Nexium) ibandronate 150 mg tablet (Boniva) 150 mg PO QMONTH 04/30/20 04/30/20 levothyroxine 100 mcg capsule 100 mcg PO DAILY 04/30/20 04/30/20 melatonin 5 mg capsule mg PO 04/30/20 04/30/20 naproxen sodium 220 mg capsule 220 mg PO BID PRN 04/30/20 04/30/20 (Aleve) turmeric (bulk) 95 % powder ea miscellaneous 04/30/20 04/30/20 (Curcumin) zolpidem 5 mg tablet (Ambien) 5 mg PO BEDTIME PRN 04/30/20 04/30/20 Previous Rx's Medication Instructions Recorded clotrimazole 1 %-betamethasone See Rx Instructions topical 04/15/20 0.05 % cream-zinc ox 20 % paste .COMPLEX #135 grams topical apixaban 5 mg tablet (Eliquis) 5 mg PO BID #60 tabs 10/22/21 metoprolol succinate 50 mg 50 mg PO DAILY #30 tabs 10/22/21 tablet,extended release 24 hr PS-ESTRADIOL 0.1mg Capsule [place] 0.1 mg vaginal 3XW #36 caps 05/13/22 Oil Clear Allergies Allergy/AdvReac Type Severity Reaction Status Date / Time No Known Drug Allergies Allergy Verified 10/22/21 10:01 Review of Systems Review of Systems ROS Unobtainable: All systems reviewed & are unremarkable except as noted in HPI and below Patient History Surgical History History of breast augmentation History of third molar tooth extraction History of tonsillectomy Status post arthroscopy Status post rhinoplasty Social History household members: spouse Smoking Status: Never smoker Smoking Status: Never smoker alcohol intake frequency: 0-2 drinks per day Substance Use Type: does not use Exam Initial Vital Signs Initial Vital Signs: Vital Signs Pulse Rate 64 06/25/22 04:25 Respiratory Rate 18 06/25/22 04:25 Blood Pressure 196/80 H 06/25/22 04:25 Pulse Oximetry 98 06/25/22 04:25 Oxygen Delivery Method Room Air 06/25/22 04:25 GENERAL: alert pleasant new 2-year-old female without acute distress HEENT: Head atraumatic,EOMI, pupils reactive, face symmetric, [moist] mucous membranes CARDIOVASCULAR: Regular rate and rhythm without murmurs, rubs or gallops. RESPIRATORY: Breath sounds equal bilaterally, no wheezes rales or rhonchi. ABDOMEN: Soft, nontender. Normoactive bowel sounds all 4 quadrants. No guarding or rebound. EXTREMITIES: Normal range of motion, no clubbing or edema. Neurovascularly intact NEUROLOGICAL: Alert and oriented x4.Normal gait and speech. SKIN: Warm, dry, no laceration, no petechiae, no rashes or lesions. Course Orders Ordered: Discontinued Medications Al Hydrox/Mg Hydrox/Simethicone 20 ml/ Lidocaine HCl 15 ml 0 ml PO NOW ONE Stop: 06/25/22 05:35 Last Admin: 06/25/22 05:47 Dose: 15 ml Documented By: Sodium Chloride (Normal Saline 0.9%) 1,000 mls @ 150 mls/hr IV CONT DARRYL Last Admin: 06/25/22 04:52 Dose: 150 mls/hr Documented By: AP Morphine Sulfate (Morphine 2 Mg/Ml Inj) 2 mg IV NOW ONE Stop: 06/25/22 05:59 Last Admin: 06/25/22 06:01 Dose: 2 mg Documented By: Pantoprazole Sodium (Pantoprazole 40 Mg Vial) 40 mg IV NOW ONE Stop: 06/25/22 04:28 Last Admin: 06/25/22 04:52 Dose: 40 mg Documented By: AP Vital Signs Vital signs: Vital Signs - 8 hr 06/25/22 04:25 06/25/22 04:27 06/25/22 04:27 Pulse Rate 64 59 L Respiratory Rate 18 Blood Pressure 196/80 H 196/80 H Pulse Oximetry 98 98 Oxygen Delivery Method Room Air 06/25/22 04:30 06/25/22 04:41 06/25/22 04:41 Pulse Rate 58 L 54 L Respiratory Rate 20 Blood Pressure 161/71 H Pulse Oximetry 99 97 Oxygen Delivery Method 06/25/22 05:00 06/25/22 05:00 06/25/22 05:30 Pulse Rate 47 L Respiratory Rate 18 Blood Pressure 138/63 141/67 H Pulse Oximetry 96 Oxygen Delivery Method 06/25/22 05:30 Pulse Rate 51 L Respiratory Rate 19 Blood Pressure Pulse Oximetry 96 Oxygen Delivery Method MDM - Chest Pain Lab Data 06/25/22 04:37 06/25/22 04:37 Labs: Lab Results 06/25/22 06/25/22 06/25/22 Range/Units 04:37 04:37 06:23 WBC 7.5 (4.5-11.0) X10^3/uL RBC 4.07 (4.0-5.2) X10^6/uL Hgb 13.8 (12.0-16.0) g/dL Hct 40.3 (36-46) % MCV 99.0 (80-100) fL MCH 33.9 (26-34) PG MCHC 34.2 (30-36) % RDW 13.2 (11.6-14.8) % Plt Count 195 (150-400) X10^3/uL Neut % (Auto) 54.6 (50-75) % Lymph % (Auto) 35.0 (25-40) % Frederick % (Auto) 8.7 (3-14) % Eos % (Auto) 1.1 L (2-4) % Baso % (Auto) 0.6 (0-2) % Neut # (Auto) 4100 (4178-0595) /uL Lymph # (Auto) 2600 (8466-1019) /uL Frederick # (Auto) 700 (0-900) /uL Eos # (Auto) 100 (0-450) /uL Baso # (Auto) 0 (0-100) /uL Sodium 135 L (137-145) mmol/L Potassium 3.6 (3.4-5.1) mmol/L Chloride 101 (98-107) mmol/L Carbon Dioxide 27 (22-32) mmol/L BUN 14 (7-17) mg/dL Creatinine 0.67 (0.52-1.04) mg/dL Estimated GFR > 60 (>60) mL/min BUN/Creatinine Ratio 20.9 (6-22) Glucose 101 (80-110) mg/dL Calcium 9.5 (8.4-10.2) mg/dL Total Bilirubin 0.5 (0.2-1.3) mg/dL AST 46 H (14-36) IU/L ALT 33 (<35) IU/L Alkaline Phosphatase 49 (38-126) U/L Total Creatine Kinase 86 (30-135) U/L CK-MB (CK-2) TNP CK-MB (CK-2) Rel Index TNP Troponin I < 0.012 < 0.012 (0.01-0.034) ng/mL Total Protein 7.3 (6.3-8.2) g/dL Albumin 4.2 (3.5-5.0) g/dL Globulin 3.1 (1.7-4.1) g/dL Albumin/Globulin Ratio 1.4 (1.0-2.8) Lipase 95 (23-300) U/L Imaging Data Chest x-ray: Radiologist's Impression: PROCEDURE:? XR CHEST 1V ? INDICATIONS:? chest pain ? TECHNIQUE:? One view of the chest was acquired.? ? COMPARISON:? [facility], CR, XR CHEST 2V, 01/20/2018, 12:41.? [facility], CR, XR CHEST 1V, 10/22/2021, 10:07. ? FINDINGS:? ? Surgical changes and devices:? None.? ? Lungs and pleura:? Lungs are clear.? No pleural effusions or pneumothorax.? ? Mediastinum:? Mediastinal contours appear within normal limits.? Heart size is mildly enlarged.? ? Bones and chest wall:? No suspicious bony lesions.? Overlying soft tissues appear unremarkable.? ? IMPRESSION:? Mild cardiomegaly.? No acute cardiopulmonary abnormalities.? No focal consolidation. ? No significant discrepancy with the security shift manager radiology preliminary report. ? ? ECG Data Interpretation: EKG sinus rhythm rate 52 very poor quality loss of artifact MDM Narrative Medical decision making narrative: The patient 72-year-old female history of atrial fibrillation on Eliquis appears to be in sinus rhythm on the monitor poor quality EKG about monitor appears good. She has tightening all the way from her neck down into her abdomen difficulty swallowing foods and liquids although she is not vomiting. She reports feeling like an esophageal spasm. She received Protonix and a GI cocktail no significant improvement. She did receive morphine as well which did help some. Blood work is overall reassuring no electrolyte abnormality leukocytosis anemia or ALY. She has 2- troponins. She is feeling significantly better after the morphine. She says she can still feel it spasm a little bit in her neck but much more tolerable. It sounds as though she is had this previously. Differential diagnosis includes acute coronary syndrome dissection Discharge Plan Departure Patient Disposition: Home Clinical Impression: Spasm of esophagus, Atypical chest pain Instructions: Steakhouse Syndrome Activity Restrictions/Additional Instructions: *You have been diagnosed with esophageal spasm *What to do: At this time esophagus spasm and glad you are feeling better would avoid meats and be sure that you drink plenty of water with food *Continue to take medications as directed *Follow up with your primary care provider in 2-3 days or call [phone] *Return to ER if you should have increasing pain difficulty swallowing shortness of breath or any new, worsening or concerning symptoms Prescriptions: No Action clotrimazole-betameth dip-zinc 1-0.05-20 % combo pack See Rx Instructions topical .COMPLEX Qty: 135 0RF Rx Instructions: apply CLOTRIMAZOLE/BETAMETHASONE CREAM twice daily: PS-ESTRADIOL 0.1mg Capsule [place] Oil Clear 0.1 mg Vaginal 3XW Qty: 36 3RF esomeprazole magnesium [Nexium] 40 mg capsule,delayed release(DR/EC) 40 mg PO DAILY ibandronate [Boniva] 150 mg tablet 150 mg PO QMONTH naproxen sodium [Aleve] 220 mg capsule 220 mg PO BID PRN calcium carbonate [Calcium 500] 500 mg calcium (1,250 mg) tablet 500 mg PO DAILY cholecalciferol (vitamin D3) 125 mcg (5,000 unit) capsule 125 mcg PO DAILY Curcumin 95 % powder miscellaneous levothyroxine 100 mcg capsule 100 mcg PO DAILY melatonin 5 mg capsule PO zolpidem [Ambien] 5 mg tablet 5 mg PO BEDTIME PRN Eliquis 5 mg tablet 5 mg PO BID Qty: 60 0RF metoprolol succinate 50 mg tablet extended release 24 hr 50 mg PO DAILY Qty: 30 0RF Referrals: Jorge Vanessa MD [Primary Care Provider] - Stand Alone Forms: Patient Portal/API
[2022-06-25 05:06] LABS: Troponin I < 0.012 ng/mL (0.01-0.034)
[2022-06-25] MEDS: MAG HYDROX/ALUMINUM/SIMETH SUS 20 ML, LIDOCAINE VISCOUS 2% 15 ML PO (05:47)
[2022-06-25] MEDS: MORPHINE 2 MG/ML INJ IV (06:01)
[2022-06-25 06:53] LABS: Troponin I < 0.012 ng/mL (0.01-0.034)
== END 2022-06-25 07:11 | disposition home or self-care (01) ==
PROVIDERS: Emergency Provider Emergency Medicine; PCP Family Medicine
DX: R07.89 Other chest pain (principal); K22.4 Dyskinesia of esophagus; I48.91 Unspecified atrial fibrillation; Z79.01 Long term (current) use of anticoagulants
CPT/HCPCS: 36415; 71045; 80053; 82550; 83690; 84484; 85025; 93005; 96374; 96375; 99284; C9113; J2270

== ENCOUNTER → 2023-04-05 13:00 | Outpatient (CLI) | payer MEDICARE, OTHER, SELFPAY ==
--- NOTE | 2023-04-05 13:06 | DI.RAD.S_ITS ---
PROCEDURE: XR ACUTE ABDOMEN SERIES INDICATIONS: Abdominal Pain TECHNIQUE: One view chest and two views of the abdomen were acquired. COMPARISON: CT, CT ANGIO CHEST ABDOMEN PELVIS, 02/24/2018, 9:34. FINDINGS: Surgical changes and devices: None. Chest: Lungs are clear. Heart size is normal. No pleural effusions. No pneumoperitoneum. Abdomen: Bowel gas pattern is nonspecific, nonobstructive. There is a moderate amount of stool in colon. Colonic gas and small bowel gas are present. There a few air-fluid level in the right mid abdomen. No suspicious calcifications. Visualized solid organ contours appear normal. Bones: No suspicious bony lesions. Mild levoscoliosis. Moderate degenerative changes noted in the lower lumbar spine. IMPRESSION: Nonspecific-nonobstructive bowel gas pattern. Dictated by: Petar Mazariegos M.D. on 04/05/2023 at 15:39 Approved by: Petar Mazariegos M.D. on 04/05/2023 at 16:07
== END ==
PROVIDERS: PCP Family Medicine; Referring Provider Family Medicine; Visit Provider Family Medicine
DX: R10.9 Unspecified abdominal pain (principal); M47.816 Spondylosis without myelopathy or radiculopathy, lumbar region; M41.9 Scoliosis, unspecified
CPT/HCPCS: 74022

== ENCOUNTER → 2023-04-08 10:59 | Outpatient (CLI) | payer MEDICARE, OTHER, SELFPAY ==
--- NOTE | 2023-04-08 11:00 | DI.MG.S_ITS ---
BILATERAL DIGITAL SCREENING MAMMOGRAM 3D/2D WITH CAD: 04/08/2023 CLINICAL: Routine screening. Family history of breast cancer. Comparison is made to exams dated: 03/29/2022 mammogram, 03/16/2021 mammogram, 09/14/2019 mammogram, and 07/11/2018 mammogram - [facility]. Both breasts are heterogeneously dense, which may obscure small masses (category c / 51-75% glandular tissue). Current study was also evaluated with a Computer Aided Detection (CAD) system. There are benign post operative findings in both breasts. Left breast free silicone is present No significant masses, calcifications, or other findings are seen in either breast. There has been no significant interval change. IMPRESSION: BENIGN There is no mammographic evidence of malignancy. A 1 year screening mammogram is recommended. Based on the Tyrer Cuzick model (a risk assessment model) the patient's lifetime risk is 13.1% and her 10 year risk is 9.1%. According to the ACR, ACS, and NCCN guidelines, an annual breast MRI exam along with mammogram is recommended if the patient's lifetime risk is 20% or greater. This exam was interpreted at Station ID: [id number]. NOTE: For mammograms, a report in lay terms will be sent to the patient. Approximately 15% of breast malignancies will not be visualized mammographically. In the management of a palpable breast mass, a negative mammogram must not discourage biopsy of a clinically suspicious lesion. Electronically Signed By: Channing Quintanilla M.D. [facility] [place]04/08/2023 16:32:59 letter sent: Normal Exam ACR BI-RADS Category 2: Benign Finding(s) [id number]
== END ==
PROVIDERS: PCP Family Medicine; Referring Provider Family Medicine; Visit Provider Family Medicine
DX: Z12.31 Encounter for screening mammogram for malignant neoplasm of breast (principal); Z80.3 Family history of malignant neoplasm of breast; R92.333 Mammographic heterogeneous density, bilateral breasts
CPT/HCPCS: 77063; 77067

== ENCOUNTER → 2023-04-28 10:53 | Outpatient (CLI) | payer MEDICARE, OTHER, SELFPAY ==
--- NOTE | 2023-04-28 10:55 | DI.CT.S_ITS ---
PROCEDURE: CT ABDOMEN PELVIS W CON INDICATIONS: Generalized abdominal pain TECHNIQUE: After the administration of intravenous contrast, axial sections acquired from the lung bases to the pubic symphysis. Coronal and sagittal reformats were performed. For radiation dose reduction, the following was used: automated exposure control, adjustment of mA and/or kV according to patient size. COMPARISON: [facility], CT, CT ANGIO CHEST ABDOMEN PELVIS, 02/24/2018, 9:34. FINDINGS: Image quality: Diagnostic. Lower Chest: No suspicious pulmonary nodules or consolidation. Borderline cardiomegaly. ABDOMEN: Liver: No solid mass. Multiple hepatic simple cysts. Additional subcentimeter hepatic hypodensiites are too small to characterize. Gallbladder: No radiopaque gallstones or wall thickening. Biliary ducts: No biliary dilation. Pancreas: No ductal dilation. Spleen: Size is within normal limits. Adrenal Glands: No adrenal nodules. Kidneys and Ureters: Left parapelvic cysts, as before. No hydronephrosis or nephrolithiasis bilaterally. No solid mass. No complex renal cystic lesion which requires follow up. Stomach and Bowel: No hiatal hernia. Small and large bowel is normal in caliber without obstruction. Diverticulosis without diverticulitis. Normal appendix (2/52). Normal colonic stool burden. Peritoneum: No abnormal intraperitoneal fluid. No free air. Ventral Wall: Tiny fat containing umbilical hernia. Abdominal Nodes: No retroperitoneal or mesenteric adenopathy by size criteria. Vessels: Aorta and inferior vena cava are normal in size. Circumaortic left renal vein. Mild scattered atherosclerosis of the abdominal aorta and iliac vessels. PELVIS: Pelvic Organs: Unremarkable. Bladder: No bladder wall thickening, accounting for underdistention. Pelvic Nodes: No enlarged lymph nodes. Miscellaneous: No inguinal hernias are seen. Bones: No aggressive osseous abnormality. No acute fracture. Moderate to severe degenerative changes of the spine with grade 1 anterolisthesis at L4 on L5. Bone islands in the sacrum. IMPRESSION: 1. No acute pathology in the abdomen or pelvis. Specifically, no CT findings to explain patient's diffuse abdominal pain. 2. Diverticulosis without diverticulitis. Dictated by: Joaquín Buchanan M.D. on 04/28/2023 at 17:59 Approved by: Joaquín Buchanan M.D. on 04/28/2023 at 19:02
--- NOTE | 2023-04-28 10:56 | DI.RAD.S_ITS ---
PROCEDURE: XR THORACIC SPINE 3V INDICATIONS: BACK PAIN TECHNIQUE: 3 views of the thoracic spine were acquired. COMPARISON: None. FINDINGS: Bones: No fractures or dislocations. No suspicious bony lesions. 12 pairs of ribs are noted, and appear intact where visualized. Minimal S shaped scoliotic curvature Soft tissues: No paravertebral stripe thickening. IMPRESSION: No acute bony abnormality. Minimal S shaped scoliotic curvature. Dictated by: Arnoldo Garcia M.D. on 04/28/2023 at 19:57 Approved by: Arnoldo Garcia M.D. on 04/28/2023 at 19:57
== END ==
LOC: CT 10:54
PROVIDERS: PCP Family Medicine; Referring Provider Family Medicine; Visit Provider Family Medicine
DX: R10.84 Generalized abdominal pain (principal); M54.6 Pain in thoracic spine; K76.89 Other specified diseases of liver; K57.90 Diverticulosis of intestine, part unspecified, without perforation or abscess without bleeding; I70.0 Atherosclerosis of aorta; M47.816 Spondylosis without myelopathy or radiculopathy, lumbar region; M43.16 Spondylolisthesis, lumbar region; G89.29 Other chronic pain
CPT/HCPCS: 72072; 74177; Q9967

== ENCOUNTER → 2023-10-06 14:26 | Outpatient (CLI) | payer MEDICARE, OTHER, SELFPAY ==
--- NOTE | 2023-10-06 14:29 | DI.RAD.S_ITS ---
PROCEDURE: XR HAND LT MIN 3V INDICATIONS: Primary osteoarthritis, other specified site TECHNIQUE: 3 views of the hand(s) acquired. COMPARISON: [facility], CR, XR HAND RT MIN 3V, 10/06/2023, 13:38. FINDINGS: Bones: No fractures or dislocations. Moderate to severe IP, 1st MCP 1st CMC degenerative narrowing. Most severe areas are 1st CMC as as 4th PIP joints. Areas of subchondral sclerosis, periarticular osteophytes and subchondral lucencies are present, most severe at the 1st CMC joint. Soft tissues: No suspicious soft tissue calcifications. IMPRESSION: Moderate arthritic changes most severe at the 1st CMC joint. Areas of periarticular lucency are present which may represent subchondral cysts or under appropriate clinical laboratory circumstances erosions. Dictated by: Stephanie Trevizo M.D. on 10/06/2023 at 21:10 Approved by: Stephanie Trevizo M.D. on 10/06/2023 at 21:11
--- NOTE | 2023-10-06 14:29 | DI.RAD.S_ITS ---
PROCEDURE: XR HAND RT MIN 3V INDICATIONS: Primary osteoarthritis, other specified site TECHNIQUE: 3 views of the hand(s) acquired. COMPARISON: None. FINDINGS: Bones: No fractures or dislocations. There is moderate to severe IP, 1st CMC as well 2nd through 5th MCP joint space narrowing. Subchondral sclerosis and periarticular osteophytes are present most severe at the 1st CMC joint. Areas of periarticular lucencies are present, also most severe at the 1st CMC joint. Soft tissues: No suspicious soft tissue calcifications. IMPRESSION: Prominent arthritic changes as described above. Areas of periarticular lucency could represent subchondral cysts. However, under appropriate clinical laboratory circumstances, erosions cannot be excluded. Dictated by: Stephanie Trevizo M.D. on 10/06/2023 at 21:08 Approved by: Stephanie Trevizo M.D. on 10/06/2023 at 21:10
== END ==
PROVIDERS: PCP Family Medicine; Referring Provider Family Medicine; Visit Provider Family Medicine
DX: M19.09 Primary osteoarthritis, other specified site (principal)
CPT/HCPCS: 73130

== ENCOUNTER → 2023-10-18 12:45 | Outpatient (CLI) | payer MEDICARE, OTHER, SELFPAY ==
--- NOTE | 2023-10-18 12:47 | DI.RAD.S_ITS ---
PROCEDURE: XR KNEE RT 3V INDICATIONS: KNEE PAIN TECHNIQUE: 3 views of the knee were acquired. COMPARISON: [facility], CR, XR KNEE 3 VIEWS RIGHT, 03/23/2021, 10:53. [facility], CR, XR KNEE LT 3V, 10/28/2020, 13:18. [facility], CR, XR KNEE LT 3V, 01/17/2020, 10:44. FINDINGS: Mild tricompartmental osteoarthritis, most conspicuous in the medial and patellofemoral compartments. Medial and lateral compartment chondrocalcinosis. No fracture or dislocation. No significant joint effusion. IMPRESSION: Mild knee osteoarthritis. Dictated by: Alex Bolton M.D. on 10/18/2023 at 15:37 Approved by: Alex Bolton M.D. on 10/18/2023 at 15:39
== END ==
PROVIDERS: PCP Family Medicine; Referring Provider Family Medicine; Visit Provider Family Medicine
DX: M17.11 Unilateral primary osteoarthritis, right knee (principal); M11.261 Other chondrocalcinosis, right knee; M25.561 Pain in right knee
CPT/HCPCS: 73562

== ENCOUNTER → 2023-11-09 15:14 | Outpatient (CLI) | payer MEDICARE, OTHER, SELFPAY ==
--- NOTE | 2023-11-09 15:16 | DI.MRI.S_ITS ---
PROCEDURE: MR KNEE RT WO CON INDICATIONS: ACUTE PAIN OF RT KNEE TECHNIQUE: Noncontrast sagittal PD fast spin echo and T2 fast spin echo with fat saturation, sagittal 3-D FLASH with fat saturation; coronal T1 spin echo and PD fast spin echo with fat saturation, and axial PD fast spin echo with fat saturation through the knee. COMPARISON: [facility], CR, XR KNEE RT 3V, 10/18/2023, 12:51. FINDINGS: Image quality: Excellent. Menisci: Complex flap tear involving posterior horn of medial meniscus is seen extending to both superior and inferior articulating surfaces. The lateral meniscus is intact. The meniscal root ligaments appear intact. Cruciate ligaments: The anterior and posterior cruciate ligaments appear intact. Medial structures: The medial collateral ligament appears significantly thickened with intrasubstance T2 hyperintense signal and surrounding edema. Visualized portions of the pes anserinus tendons appear normal. No abnormal bursal fluid. Lateral structures: The lateral collateral ligament, long and short heads of the biceps femoris tendon appear intact. The popliteus tendon appears normal. Iliotibial band appears normal. Anterior structures: The quadriceps and patellar tendons appear intact. Patellar alignment is normal. Extensive lateral femoral trochlear chondromalacia is seen. Bones and cartilage: Moderate tricompartmental osteoarthritis and chondromalacia most notably in medial femoral tibial compartment. Mild edema involving weight-bearing portion of medial tibial plateau medial pleura free is seen without discrete fracture line. No fracture or dislocation. Joint space: There is moderate knee joint fluid. There is a large septated popliteal cyst measures of to 4.9 x 3.1 x 8.8 cm in size. Normal appearing synovial plicae are incidentally noted. IMPRESSION: 1. Complex flap tear involving posterior horn of medial meniscus extending to both superior and inferior articulating surfaces. The lateral meniscus is intact. 2. Moderate MCL sprain/partial-thickness tear. The cruciate ligaments are intact. 3. Moderate tricompartmental osteoarthritis and chondromalacia more notably in medial femoral tibial compartment. Likely bony contusion involving medial periphery of medial tibial plateau weight-bearing portion. No fracture or dislocation. 4. Moderate joint effusion and a large septated popliteal cyst as above. No gross loose bodies. Dictated by: Ronal Luong M.D. on 11/10/2023 at 9:36 Approved by: Ronal Luong M.D. on 11/10/2023 at 9:48
== END ==
PROVIDERS: PCP Family Medicine; Referring Provider Family Medicine; Visit Provider Family Medicine
DX: S83.231A Complex tear of medial meniscus, current injury, right knee, initial encounter (principal); S83.411A Sprain of medial collateral ligament of right knee, initial encounter; M17.11 Unilateral primary osteoarthritis, right knee; M25.461 Effusion, right knee; M71.21 Synovial cyst of popliteal space [Baker], right knee; M94.261 Chondromalacia, right knee; M25.561 Pain in right knee
CPT/HCPCS: 73721

== ENCOUNTER → 2023-12-22 13:52 | Outpatient (CLI) | payer MEDICARE, OTHER, SELFPAY ==
--- NOTE | 2023-12-22 13:55 | DI.RAD.S_ITS ---
PROCEDURE: XR RIBS RT MIN 3V W CXR 1V INDICATIONS: RIB PAIN TECHNIQUE: 2 views of the ribs were acquired, along with a single view chest. COMPARISON: [facility], CR, XR RIBS RT MIN 3V W CXR 1V, 04/27/2022, 11:32. FINDINGS: Surgical changes and devices: None. Bones and chest wall: No acute displaced rib fracture. No suspicious bony lesions. Overlying soft tissues appear unremarkable. Lungs and pleura: No pleural effusions or pneumothorax. Lungs appear clear. Mediastinum: Mediastinal contours appear normal. Heart size is normal. IMPRESSION: No acute displaced rib fracture or pneumothorax. Approved by: Anibal Miranda M.D. on 12/23/2023 at 10:27
== END ==
LOC: RAD 13:54
PROVIDERS: PCP Family Medicine; Referring Provider Family Medicine; Visit Provider Family Medicine
DX: S20.211A Contusion of right front wall of thorax, initial encounter (principal); X58.XXXA Exposure to other specified factors, initial encounter
CPT/HCPCS: 71101

== ENCOUNTER → 2024-04-27 14:56 | Outpatient (CLI) | payer MEDICARE, OTHER, SELFPAY ==
[2024-04-27 16:04] LABS: Alanine Aminotransferase 19 IU/L (<35); Albumin 4.2 g/dL (3.5-5.0); Albumin Globulin Ratio 1.3 (1.0-2.8); Alkaline Phosphatase 73 U/L (38-126); Aspartate Aminotransferase 27 IU/L (14-36); BUN Creatinine Ratio 18.6 (6-22); Bilirubin Total 0.3 mg/dL (0.2-1.3); Blood Urea Nitrogen 13 mg/dL (7-17); Calcium 10.3 mg/dL (8.4-10.2); Carbon Dioxide 29 mmol/L (22-32); Chloride 101 mmol/L (98-107); Estimated Glomerular Filt Rate > 60 mL/min (>60); Globulin 3.3 g/dL (1.7-4.1); Glucose 102 mg/dL (80-110); HEMOLYSIS < 15 (0-50); Potassium 4.4 mmol/L (3.4-5.1); Sodium 135 mmol/L (137-145); Total Protein 7.5 g/dL (6.3-8.2)
== END ==
PROVIDERS: PCP Family Medicine; Referring Provider Family Medicine; Visit Provider Family Medicine
DX: B35.1 Tinea unguium (principal)
CPT/HCPCS: 36415; 80053

== ENCOUNTER → 2024-05-03 13:43 | Outpatient (CLI) | payer MEDICARE, OTHER, SELFPAY ==
--- NOTE | 2024-05-03 13:45 | DI.MG.S_ITS ---
MM screening mammo BI: 05/03/2024. BI-RADS: 2 CLINICAL: 73-year old female for bilateral screening mammogram. Tyrer-Cuzick lifetime risk of 8.1%. Current reported family history of breast cancer: mother. PRIOR EXAMS 04/08/2023, 03/29/2022, 03/16/2021, 09/14/2019, 07/11/2018, 06/08/2017, 04/15/2016, 01/27/2016, 01/17/2015. MAMMOGRAPHY TECHNIQUE: 2D and 3D (tomosynthesis) digital mammographic views obtained, with additional images as needed for full coverage. Current study was also evaluated with a Computer Aided Detection (CAD) system. DENSITY C. The breasts are heterogeneously dense, which may obscure small masses. MAMMOGRAPHY FINDINGS Left: There is stable free silicone in the left breast. Bilateral: Benign-appearing post-surgical changes noted. There are no suspicious masses, calcifications, or other findings in the breast. No significant change from comparison. IMPRESSION: * No evidence of malignancy with benign findings. RECOMMENDATIONS Bilateral * Annual screening mammography. OVERALL ASSESSMENT CATEGORY BI-RADS-2: Benign. [employer] recommends annual screening mammography beginning at age 40 for women with average risk of breast cancer. ELECTRONICALLY SIGNED: Shannen Cordova M.D. on 05/03/2024 at 04:37:23 PM PT Interpreting Station ID: [id number]
== END ==
PROVIDERS: PCP Family Medicine; Referring Provider Family Medicine; Visit Provider Family Medicine
DX: Z12.31 Encounter for screening mammogram for malignant neoplasm of breast (principal); Z80.3 Family history of malignant neoplasm of breast; R92.333 Mammographic heterogeneous density, bilateral breasts
CPT/HCPCS: 77063; 77067

== ENCOUNTER → 2024-11-23 15:22 | Outpatient (CLI) | payer MEDICARE, OTHER, SELFPAY ==
--- NOTE | 2024-11-23 15:24 | DI.RAD.S_ITS ---
PROCEDURE: XR RIBS BI 3V INDICATIONS: BLUNT TRAUMA OF RIB TECHNIQUE: 5 views of the ribs were acquired. COMPARISON: [facility], CR, XR RIBS RT MIN 3V W CXR 1V, 12/22/2023, 13:56. FINDINGS: Surgical changes and devices: None. Bones and chest wall: No fractures or dislocations. No suspicious bony lesions. Overlying soft tissues appear unremarkable. Lungs and pleura: The visualized lung appears clear. No pleural effusions or pneumothorax are visible. IMPRESSION: No displaced rib fracture. Dictated by: Marky Mcfadden M.D. on 11/25/2024 at 14:48 Approved by: Marky Mcfadden M.D. on 11/25/2024 at 14:51
--- NOTE | 2024-11-23 15:24 | DI.RAD.S_ITS ---
PROCEDURE: XR HIP W PEL IF DONE RT 2V INDICATIONS: HIP PAIN TECHNIQUE: 2 views of the hip were acquired. COMPARISON: None. FINDINGS: Bones: There is anatomic alignment. Moderate diffuse osteopenia. There is mild to moderate degenerative disease in the right hip and mild degenerative disease in the left hip. Mild degenerative disease seen also in both SI joints. No focal osseous lesion seen. Soft tissues: No suspicious soft tissue calcifications or masses. IMPRESSION: Degenerative changes, no focal osseous lesion seen. Dictated by: Marky Mcfadden M.D. on 11/25/2024 at 14:43 Approved by: Marky Mcfadden M.D. on 11/25/2024 at 14:45
== END ==
PROVIDERS: PCP Family Medicine; Referring Provider Family Medicine; Visit Provider Family Medicine
DX: S29.8XXA Other specified injuries of thorax, initial encounter (principal); M46.1 Sacroiliitis, not elsewhere classified; M85.88 Other specified disorders of bone density and structure, other site; M16.0 Bilateral primary osteoarthritis of hip; X58.XXXA Exposure to other specified factors, initial encounter
CPT/HCPCS: 71110; 73502

== ENCOUNTER → 2025-01-25 15:33 | Outpatient (CLI) | payer MEDICARE, OTHER, SELFPAY ==
--- NOTE | 2025-01-25 15:35 | DI.CT.S_ITS ---
PROCEDURE: CT HEAD/BRAIN WO CON INDICATIONS: head injury TECHNIQUE: Noncontrast 4.5 mm thick angled axial sections acquired from the foramen magnum to the vertex, with coronal and sagittal reformats. For radiation dose reduction, the following was used: automated exposure control, adjustment of mA and/or kV according to patient size. COMPARISON: [facility], CT, CT CERVICAL SPINE WO CON, 01/25/2025, 15:37. FINDINGS: Image quality: Diagnostic. CSF spaces: Basal cisterns are patent. No extra-axial fluid collections. The ventricles are symmetric in size and shape. Brain: No intracranial bleeds or mass effect. There is cerebral volume loss, with resultant ventricular and sulcal prominence. There are periventricular and deep white matter chronic small vessel ischemic changes. There is intracranial internal carotid artery atherosclerosis. Skull and face: Calvarium and visualized facial bones appear intact, without suspicious lesions. Sinuses: Visualized sinuses and mastoids are clear. IMPRESSION: 1. No acute intracranial process. 2. Moderate atrophy and chronic microvascular ischemic changes. Dictated by: Stephanie Trevizo M.D. on 01/25/2025 at 15:53 Approved by: Stephanie Trevizo M.D. on 01/25/2025 at 15:54
--- NOTE | 2025-01-25 15:35 | DI.CT.S_ITS ---
PROCEDURE: CT CERVICAL SPINE WO CON INDICATIONS: head injury TECHNIQUE: Noncontrast 3 mm thick sections acquired from the skull base to the T4 level. Sagittal and coronal reformats were then constructed. For radiation dose reduction, the following was used: automated exposure control, adjustment of mA and/or kV according to patient size. COMPARISON: None. FINDINGS: Image quality: Excellent. Bones: No fractures or dislocations. Severe cervical spondylitic change. Multilevel uncovertebral joint hypertrophy resulting in multilevel bony foraminal stenosis. Retrolisthesis of C5 on C6 associated with posterior disc osteophyte complex results in severe canal stenosis at C5-C6. Visualized superior ribs are intact. Soft tissues: Prevertebral soft tissues are normal in thickness. No paravertebral hematomas. No apical pneumothoraces. IMPRESSION: No displaced fracture or traumatic subluxation. Diffuse cervical spondylitic change with severe canal stenosis at C5-C6 and multilevel bony foraminal narrowing. Dictated by: Arnoldo Garcia M.D. on 01/25/2025 at 16:10 Approved by: Arnoldo Garcia M.D. on 01/25/2025 at 16:11
== END ==
LOC: CT 15:34
PROVIDERS: PCP Family Medicine; Referring Provider Family Medicine; Visit Provider Family Medicine
DX: S09.90XA Unspecified injury of head, initial encounter (principal); I65.29 Occlusion and stenosis of unspecified carotid artery; M47.22 Other spondylosis with radiculopathy, cervical region; M48.02 Spinal stenosis, cervical region; X58.XXXA Exposure to other specified factors, initial encounter
CPT/HCPCS: 70450; 72125